=== PATIENT | female | born 1945 | race Caucasian/White ===

== ENCOUNTER 2020-03-24 13:59 | Outpatient (REF) | payer MEDICARE, SELFPAY ==
[2020-03-25 12:26] LABS: Anti DNA DS Antibody <1 IU/mL; SM/Ribonucleoprotein Ab <1.0 NEG AI (<1.0 NEG); Smith Protein <1.0 NEG AI (<1.0 NEG)
[2020-03-25 23:08] LABS: Anti Nuclear Antibody Screen POSITIVE (NEGATIVE)
== END 2020-03-24 14:00 | disposition home or self-care (01) ==
LOC: HO.LAB 13:59
PROVIDERS: PCP Internal Medicine; Visit Provider Hospitalist
DX: R76.8 Other specified abnormal immunological findings in serum (principal)
CPT/HCPCS: 36415; 86038; 86039; 86225; 86235

== ENCOUNTER → 2020-04-02 09:51 | Outpatient (BNVA) | payer MEDICARE, SELFPAY | PROVIDERS: PCP Internal Medicine; Visit Provider Hospitalist | DX: R91.8 Other nonspecific abnormal finding of lung field (principal); J45.909 Unspecified asthma, uncomplicated; M35.00 Sjogren syndrome, unspecified; J31.0 Chronic rhinitis | CPT/HCPCS: 99212 ==

== ENCOUNTER → 2020-06-28 13:00 | Outpatient (BNVA) | payer MEDICARE, SELFPAY | PROVIDERS: PCP Internal Medicine; Visit Provider Hospitalist | DX: J45.40 Moderate persistent asthma, uncomplicated (principal); R91.8 Other nonspecific abnormal finding of lung field; M35.00 Sjogren syndrome, unspecified; J31.0 Chronic rhinitis | CPT/HCPCS: 99212 ==

== ENCOUNTER → 2020-12-30 11:01 | Outpatient (BNVA) | payer MEDICARE, SELFPAY | PROVIDERS: PCP Internal Medicine; Visit Provider Hospitalist | DX: R91.8 Other nonspecific abnormal finding of lung field (principal); J45.40 Moderate persistent asthma, uncomplicated; J31.0 Chronic rhinitis; M35.00 Sjogren syndrome, unspecified | CPT/HCPCS: 99212 ==

== ENCOUNTER 2021-06-17 10:45 | Outpatient (REF) | payer MEDICARE, SELFPAY ==
--- NOTE | 2021-06-17 13:15 | PFT_ITS ---
Forced vital capacity 81%, FEV1 90%. FEV1/FVC ratio is 84. FEF 25-75, 117% and MVV 71%. Post bronchodilator therapy, there is no significant change. Total lung capacity 85% and residual volume 76%. Diffusion capacity 66%. CONCLUSION: Normal pulmonary function tests. No evidence of obstructive or restrictive pulmonary disorder. Slight decrease in diffusion capacity is noted, but volume corrected DL/VA is 84%, which is normal. MD NATASHA Guthrie/MODL / [id number]
== END 2021-06-17 10:46 | disposition home or self-care (01) ==
LOC: HO.RESP 10:45
PROVIDERS: PCP Internal Medicine; Visit Provider Hospitalist
DX: J45.909 Unspecified asthma, uncomplicated (principal)
CPT/HCPCS: 94060; 94727; 94729

== ENCOUNTER → 2021-06-29 10:45 | Outpatient (BNVA) | payer MEDICARE, SELFPAY | PROVIDERS: PCP Internal Medicine; Visit Provider Hospitalist | DX: J45.40 Moderate persistent asthma, uncomplicated (principal); R91.8 Other nonspecific abnormal finding of lung field; M35.00 Sjogren syndrome, unspecified; J31.0 Chronic rhinitis; I48.91 Unspecified atrial fibrillation; Z79.01 Long term (current) use of anticoagulants | CPT/HCPCS: 99212 ==

== ENCOUNTER → 2022-01-02 10:52 | Outpatient (BNVA) | payer MEDICARE, SELFPAY | PROVIDERS: PCP Internal Medicine; Visit Provider Hospitalist | DX: R91.1 Solitary pulmonary nodule (principal); J45.40 Moderate persistent asthma, uncomplicated; R91.8 Other nonspecific abnormal finding of lung field; M35.00 Sjogren syndrome, unspecified; J31.0 Chronic rhinitis | CPT/HCPCS: 99212 ==

== ENCOUNTER 2022-01-10 10:15 | Outpatient (REF) | payer MEDICARE, SELFPAY ==
--- NOTE | ~2022-01-10 | PE_ITS ---
EXAMINATION: Fluorine-18 FDG PET/CT Scan CLINICAL INDICATION: Initial treatment management. Solitary pulmonary nodule. Prior left upper lobe wedge resection. PROCEDURE: 65 minutes following the intravenous administration of 15.7 mCi of fluorine 18 FDG, images from the base of the skull to the mid thighs were obtained using a combined PET/CT scanner with CT scan based attenuation correction. No oral contrast was administered. No intravenous contrast was administered. Transverse, coronal, sagittal, and volume reconstruction projections were obtained. The patient's blood glucose as determined by a finger stick, was 98 mg/dl immediately prior to injection. Total CT exam dose-length product 769.05 mGy-cm * These CT images were obtained using dose optimization techniques as appropriate, variously including the following: Automated exposure control * Adjustment of mA and/or kV according to patient size (this includes techniques or standardized protocols for targeted exams where dose is matched to indication/reason for exam; i.e. extremities or head) * Use of iterative reconstruction technique COMPARISON: The previous PET CT scan dated 05/16/2018 performed at [facility] is available for comparison. The report of a chest CT performed at [facility] dated 12/06/2021 is available, but the images from that study are not available for review. FINDINGS: (Slice numbers described in this report are numbered superiorly to inferiorly with slice #1 in the head) NECK AND VISUALIZED HEAD: No foci of abnormal FDG activity are noted. The distribution of FDG activity is physiological. There is no cervical lymphadenopathy. THORAX: There are a cluster of subcentimeter adjacent nodules in the left lung apex that show weak FDG activity, the most intense showing SUVmax 2.3, slice 58/267. These nodules were not present on the 05/16/2018 PET/CT scan. There is evidence of a prior left upper lobe wedge resection with no associated abnormal FDG activity in the suture lines or associated with several metallic surgical clips. No additional suspicious pulmonary nodules are visualized on these nondiagnostic CT images. There are no additional foci of abnormal FDG activity in the chest. There is no pleural or pericardial fluid, or pneumothorax. There is no mediastinal, supraclavicular, or axillary lymphadenopathy. Multiple metallic surgical clips are present in the right axilla with no associated abnormal FDG activity. ABDOMEN AND PELVIS: There is FDG activity of varying intensities present throughout the gastrointestinal tract without a suspicious focal component or associated CT abnormalities, likely physiological. There is diverticulosis without evidence of diverticulitis. The hollow viscera are otherwise unremarkable. The liver is unremarkable. A small amount of dependent sludge or calculi are present in the gallbladder, but the latter is otherwise unremarkable. A subcentimeter calcification is present in the mid spleen, likely a granuloma with no associated abnormal FDG activity. The spleen is otherwise unremarkable. Hypodense cyst present in the right kidney are markedly FDG photopenic and not significantly changed in appearance from the prior 05/16/2018 PET/CT scan. The left kidney is unremarkable. The adrenal glands and pancreas are unremarkable. There is no retroperitoneal, mesenteric, pelvic or inguinal lymphadenopathy. The uterus is not visualized and presumed resected. The pelvic organs are otherwise unremarkable. MUSCULOSKELETAL: There are no foci of abnormal FDG activity in the osseous structures. There is a thoracolumbar scoliosis with lumbar convexity to the right. There are degenerative changes in the spine but no suspicious sclerotic or lytic lesions are visualized. VASCULAR: Vascular calcifications including coronary are noted. PET/PET CT fusion skull to thigh IMPRESSION: 1. A cluster of subcentimeter pulmonary nodules in the left lung apex show mildly associated FDG activity and this is suspicious for malignancy in nodules of this small size. Alternatively, these could be inflammatory in etiology. Tissue sampling is recommended if clinically indicated. 2. No additional abnormalities strongly suspicious for metastatic or other malignant lesions are noted. 3. Cholelithiasis. 4. Vascular calcifications including coronary.
== END 2022-01-10 10:16 | disposition home or self-care (01) ==
LOC: HO.PET 10:15
PROVIDERS: PCP Internal Medicine; Visit Provider Hospitalist
DX: Z13.89 Encounter for screening for other disorder (principal)

== ENCOUNTER → 2022-03-07 10:08 | Outpatient (BNVA) | payer MEDICARE, SELFPAY | PROVIDERS: PCP Internal Medicine; Visit Provider Hospitalist | DX: J45.40 Moderate persistent asthma, uncomplicated (principal); R91.8 Other nonspecific abnormal finding of lung field; J31.0 Chronic rhinitis; M35.00 Sjogren syndrome, unspecified; Z79.899 Other long term (current) drug therapy | CPT/HCPCS: 99212 ==

== ENCOUNTER 2022-03-23 07:29 | Day surgery (SDC) | payer MEDICARE, SELFPAY ==
[2022-03-16 14:21] VITALS: BMI 31.7
--- NOTE | 2022-03-22 13:17 | P.CONAN_ITS ---
Documented by User: Nuvia Crandall NP 03/22/22 13:21 HPI - Anesthesia Eval Consult details Narrative: 77yo F for Bronchoscopy Fiberoptic Eliquis for afib PMFSH Active Problems Active Problems: All Active Problems (Updated 03/16/22 @ 14:19 by Mercedes Mota RN) Pulmonary nodules (Acute) Asthma (Acute) History of breast cancer (Acute ~1997) Chronic rhinitis (Acute) Sjogren's disease (Acute) Past Medical History Medical History (Updated 03/16/22 @ 14:19 by Mercedes Mota RN) Asthma Atrial fibrillation Chronic rhinitis GERD (gastroesophageal reflux disease) History of breast cancer (~1997) Pulmonary nodules Sjogren's disease Surgical History Surgical History (Updated 03/16/22 @ 14:03 by Mercedes Mota RN) History of bronchoscopy History of lung surgery Social History Social History (Updated 12/30/20 @ 11:16 by FLORENTINO Leo) Are you a primary hearing care practitioner to a significant other at home: No Patient Tobacco Use Status: Never used Tobacco Use of substances other than those prescribed or required for medical reasons: No Have you been hit, kicked, punched, or otherwise hurt by someone within the past year? If so, by whom?: No Are you DNR?: Yes Advance Directives: No Advance Directives Information Provided: Yes (will bring copies DOS) Advance Directives on File: No Recently lost weight without trying: No Eating poorly because of decreased appetite: No Nutrition Risks: Surgical patient >75years Poor oral hygiene: No Meds Allergies Allergy/AdvReac Type Severity Reaction Status Date / Time lisinopril AdvReac Intermediate Cough Verified 03/16/22 13:33 Home Medications Medication Instructions Recorded Confirmed Last Taken Type flu vacc [id number](65yr up)-PF 240 ml IM 04/02/20 04/02/20 Unknown History mcg/0.7 mL intramuscular syringe hydrochlorothiazide 12.5 mg capsule 12.5 mg PO DAILY 04/02/20 03/16/22 Unknown History hydroxychloroquine 200 mg tablet 200 mg PO BID 04/02/20 03/16/22 Unknown History omeprazole 20 mg capsule,delayed 20 mg PO DAILY 04/02/20 03/16/22 Unknown His tory release trazodone 100 mg tablet 100 mg PO BEDTIME 06/28/20 03/16/22 Unknown History apixaban 5 mg tablet (Eliquis) 5 mg PO BID 06/29/21 03/16/22 Unknown History duloxetine 40 mg capsule,delayed 40 mg PO BEDTIME 06/29/21 03/16/22 Unknown History release metoprolol succinate 25 mg 25 mg PO BEDTIME 06/29/21 03/16/22 Unknown History tablet,extended release 24 hr chlorhexidine gluconate 0.12 % 15 ml PO BID 01/02/22 03/16/22 Unknown History mouthwash Exam Exam Date and Time: March 22, 2022 1317 Height,Weight and Vital Signs: Height 5 ft 4 in Weight 83.915 kg Narrative Narrative: EKG 02/2021 SA marked axis deviation c/w LAFB ECHO 03/2021 1. There is nml LV function 2. Overall LV systolic function nml with EF 60-65% 3. Mild pulm htn PFT 05/2021 CONCLUSION:? Normal pulmonary function tests. ? No evidence of obstructive or restrictive pulmonary disorder. ? Slight decrease in diffusion capacity is noted, but volume corrected DL/VA is 84%, which is normal. Assessment and Plan Assessment Anesthesia Assessment: Chart Reviewed Documented by User: Wander Alonso MD 03/23/22 08:27 [facility] Past Medical History Medical History (Updated 03/16/22 @ 14:19 by Mercedes Mota, ADAIR) Asthma Atrial fibrillation Chronic rhinitis GERD (gastroesophageal reflux disease) History of breast cancer (~1997) Pulmonary nodules Sjogren's disease Family History Family history of problems with anesthesia: No Surgical History Surgical History (Updated 03/16/22 @ 14:03 by Mercedes Mota RN) History of bronchoscopy History of lung surgery History of Problems with Anesthesia: No Social History Social History (Updated 12/30/20 @ 11:16 by FLORENTINO Leo) Are you a primary hearing care practitioner to a significant other at home: No Patient Tobacco Use Status: Never used Tobacco Use of substances other than those prescribed or required for medical reasons: No Have you been hit, kicked, punched, or otherwise hurt by someone within the past year? If so, by whom?: No Are you DNR?: Yes Advance Directives: No Advance Directives Information Provided: Yes (will bring copies DOS) Advance Directives on File: No Recently lost weight without trying: No Eating poorly because of decreased appetite: No Nutrition Risks: Surgical patient >75years Poor oral hygiene: No Meds Allergies Allergy/AdvReac Type Severity Reaction Status Date / Time lisinopril AdvReac Intermediate Cough Verified 03/16/22 13:33 Home Medications Medication Instructions Recorded Confirmed Last Taken Type flu vacc [id number](65yr up)-PF 240 ml IM 04/02/20 04/02/20 Unknown History mcg/0.7 mL intramuscular syringe hydrochlorothiazide 12.5 mg capsule 12.5 mg PO DAILY 04/02/20 03/16/22 Unknown History hydroxychloroquine 200 mg tablet 200 mg PO BID 04/02/20 03/16/22 Unknown History omeprazole 20 mg capsule,delayed 20 mg PO DAILY 04/02/20 03/16/22 Unknown History release trazodone 100 mg tablet 100 mg PO BEDTIME 06/28/20 03/16/22 Unknown History apixaban 5 mg tablet (Eliquis) 5 mg PO BID 06/29/21 03/16/22 Unknown History duloxetine 40 mg capsule,delayed 40 mg PO BEDTIME 06/29/21 03/16/22 Unknown History release metoprolol succinate 25 mg 25 mg PO BEDTIME 06/29/21 03/16/22 Unknown History tablet,extended release 24 hr chlorhexidine gluconate 0.12 % 15 ml PO BID 01/02/22 03/16/22 Unknown History mouthwash Exam Airway Mallampati Class: II TM Dist: >3cm Neck ROM: Limited Loose/Missing/Broken Teeth: No Heart: rrr Lungs: cta Assessment and Plan Final Anesthetic Review Family History of Problems with Anesthesia: No History of Problems with Anesthesia: No NPO: Yes ASA Class: III Final Preanesthetic Review: No Changes in Pt Med Stat, Meds/Allgs Chart Reviewed, Consent Obtained/Reviewed and Anes Risks/Benef Reviewed Patient Risk: Intermediate Procedure Risk: Intermediate Anesthetic Plan Anesthetic Plan: GA and Agree w/ Assess. and Plan Disposition: Standard PACU
[2022-03-23] VITALS (8 sets, daily range): BP systolic 100–127; BP diastolic 40–59; PULSE 50–70; RESP 16–18; TEMP 36.3–37.1; O2SAT 91–99
--- NOTE | ~2022-03-23 | XR_ITS ---
EXAMINATION: XR CHEST CLINICAL INFORMATION: Left lung biopsy COMPARISON: CT chest 12/06/2021 TECHNIQUE: Frontal view of the chest was obtained. FINDINGS: There is COPD much better demonstrated on prior CT scan. Nodular opacities are again noted at the left apex, similar to the 12/06/2021 CT scan although exact comparisons between modalities is difficult. When I compare the prn physical therapist radiograph from that study with the chest radiograph today, the opacities appear increased. Heart size within normal limits. No CHF. No pleural effusions. Surgical clips noted right axilla and chest wall. XR/XR chest 1V IMPRESSION: 1. No pneumothorax. 2. Left apical nodular appearing increased when compared to the prior CT scan. Repeat CT scan, per oncology protocols, may be more useful for comparison.
--- NOTE | 2022-03-23 08:08 | MHC.SHP ---
Pre-Procedural Eval Section A Date of Service: 03/23/22 The patient is an INPATIENT: No Changes since office visit: No Cold of Flu in the past 2 weeks, No New Medical Problems, No Changes in Medication and No Patient answered all questions Section B Chief Complaint: Other nonspecific abnormal finding of lung field Allergies: Allergies Allergy/AdvReac Type Severity Reaction Status Date / Time lisinopril AdvReac Intermediate Cough Verified 03/16/22 13:33 Plan I have reviewed the history and physical and performed a pertinent physical examination on my patient. No changes have occurred unless specified. Time Spent With Patient Time: Total time managing care of this patient today ____ minutes.
[2022-03-23] MEDS: Lactated Ringers 1,000 ML 100 ML IVCONT (08:14)
--- NOTE | 2022-03-23 08:21 | PC.NURSE ---
dr. mckeon aware that patient stated she stopped eliquis on sunday and monitors at home and was in a-fib on sunday and then back to nsr on sunday. did not come to er or call exhibit designer.
--- NOTE | 2022-03-23 08:29 | HO.ANESPROP2 ---
REPLACED BY [facility] Active Problems Active Problems: All Active Problems (Updated 03/16/22 @ 14:19 by Mercedes Mota RN) Pulmonary nodules (Acute) Asthma (Acute) History of breast cancer (Acute ~1997) Chronic rhinitis (Acute) Sjogren's disease (Acute) Past Medical History Medical History (Updated 03/16/22 @ 14:19 by Mercedes Mota RN) Asthma Atrial fibrillation Chronic rhinitis GERD (gastroesophageal reflux disease) History of breast cancer (~1997) Pulmonary nodules Sjogren's disease Family History Family history of problems with anesthesia: No Surgical History Surgical History (Updated 03/16/22 @ 14:03 by Mercedes Mota RN) History of bronchoscopy History of lung surgery History of Problems with Anesthesia: No Social History Social History (Updated 12/30/20 @ 11:16 by FLORENTINO Leo) Are you a primary home care physical therapist to a significant other at home: No Patient Tobacco Use Status: Never used Tobacco Use of substances other than those prescribed or required for medical reasons: No Have you been hit, kicked, punched, or otherwise hurt by someone within the past year? If so, by whom?: No Are you DNR?: Yes Advance Directives: No Advance Directives Information Provided: Yes (will bring copies DOS) Advance Directives on File: No Recently lost weight without trying: No Eating poorly because of decreased appetite: No Nutrition Risks: Surgical patient >75years Poor oral hygiene: No Meds Allergies Allergy/AdvReac Type Severity Reaction Status Date / Time lisinopril AdvReac Intermediate Cough Verified 03/16/22 13:33 Active Medications: Current Medications Albuterol Sulfate (Albuterol Sulfate (0.083%) 2.5 Mg/3 Ml Vial.Neb) 2.5 mg INHALE ONCE PRN PRN Reason: Shortness of Breath/Wheezing Lactated Ringer's (Lr) 1,000 mls @ 100 mls/hr IVCONT .Q10H REKHA Last Admin: 03/23/22 08:14 Dose: 100 mls/hr Home Medications Medication Instructions Recorded Confirmed Last Taken Type flu vacc [id number](65yr up)-PF 240 ml IM 04/02/20 04/02/20 Unknown History mcg/0.7 mL intramuscular syringe hydrochlorothiazide 12.5 mg capsule 12.5 mg PO DAILY 04/02/20 03/16/22 Unknown History hydroxychloroquine 200 mg tablet 200 mg PO BID 04/02/20 03/16/22 Unknown History omeprazole 20 mg capsule,delayed 20 mg PO DAILY 04/02/20 03/16/22 Unknown History release trazodone 100 mg tablet 100 mg PO BEDTIME 06/28/20 03/16/22 Unknown History apixaban 5 mg tablet (Eliquis) 5 mg PO BID 06/29/21 03/16/22 Unknown History duloxetine 40 mg capsule,delayed 40 mg PO BEDTIME 06/29/21 03/16/22 Unknown History release metoprolol succinate 25 mg 25 mg PO BEDTIME 06/29/21 03/16/22 Unknown History tablet,extended release 24 hr chlorhexidine gluconate 0.12 % 15 ml PO BID 01/02/22 03/16/22 Unknown History mouthwash Exam Exam Date and Time: March 23, 2022 0829 Height,Weight and Vital Signs: Height 5 ft 4 in Weight 83.915 kg Last Vital Signs Temp 97.3 F 03/23/22 08:18 Pulse 56 03/23/22 08:18 Resp 18 03/23/22 08:18 BP 127/59 L 03/23/22 08:18 Pulse Ox 96 03/23/22 08:18 O2 Del Method 03/23/22 08:18 Airway Mallampati Class: II TM Dist: >3cm Neck ROM: Full Heart: RR, no@ Lungs: clear Assessment and Plan Assessment Anesthesia Assessment: Anesthesia Plan Discussed and Chart Reviewed Final Anesthetic Review Family History of Problems with Anesthesia: No History of Problems with Anesthesia: No NPO: Yes ASA Class: III Final Preanesthetic Review: No Changes in Pt Med Stat, Meds/Allgs Chart Reviewed, Consent Obtained/Reviewed and Anes Risks/Benef Reviewed Patient Risk: Intermediate Procedure Risk: Intermediate Anesthetic Plan Anesthetic Plan: GA Disposition: Standard PACU
--- NOTE | 2022-03-23 12:32 | P.BOP_ITS ---
Brief Operative Note Date of Service: 03/23/22 Pre-op diagnosis: pulmonary nodules Post-op diagnosis: other (bronchitis) Procedure: Bronchoscopy with transbronchial biopsies, brushings and washings Implants: Surgeon: Torrey Ortiz MD Anesthesia: GETA Was an Lamp Stack Developer used for this Procedure?: No Estimated blood loss (mL): 0 Pathology: other (CORDELIA transbronchial biopsies) Condition: stable Disposition: same day
--- NOTE | 2022-05-31 09:25 | OP_ITS ---
DATE OF SERVICE: 03/23/2022 SURGEON: Torrey Ortiz MD PREOPERATIVE DIAGNOSIS: Pulmonary nodule. POSTOPERATIVE DIAGNOSIS: PROCEDURE PERFORMED: Bronchoscopy with transbronchial biopsies, washings and brushings. ESTIMATED BLOOD LOSS: COMPLICATIONS: ANESTHESIA: General endotracheal anesthesia. ASSISTANTS: SPECIMENS: POSTOPERATIVE DIAGNOSES: Pulmonary nodule and bronchitis. DESCRIPTION OF PROCEDURE: After the patient was adequately sedated and intubated, a flexible digital bronchoscope was inserted over the ET tube to the level of the trachea. Tracheal mucosa appeared normal. After instilling lidocaine, the bronchoscope was then passed to the entire tracheobronchial tree, that was examined up to the subsegmental level. The patient did have evidence of inflammation of the mucosa suggesting of bronchitis. There was some minimal amount of mucus. No endobronchial lesions or masses. The bronchoscope was navigated to the left upper lobe where transbronchial biopsies were done. Brushings were also done and washings were also collected. No significant bleeding. The patient tolerated the procedure well. Bronchoscopic time was approximately 20 minutes. No apparent complications. SUPERVISOR COOK ROOM: None. MD YAW Joseph/ZACHARYL / [id number]
== END 2022-03-23 12:23 | disposition home or self-care (01) ==
PROVIDERS: PCP Internal Medicine; Visit Provider Hospitalist
PROC: 0BJ08ZZ Inspection of Tracheobronchial Tree, Via Natural or Artificial Opening Endoscopic (ICD-10-PCS; CPT 31622; principal; 2022-03-23 09:00)
DX: R91.8 Other nonspecific abnormal finding of lung field (principal); J44.9 Chronic obstructive pulmonary disease, unspecified; J45.40 Moderate persistent asthma, uncomplicated; J31.0 Chronic rhinitis; I48.91 Unspecified atrial fibrillation; K21.9 Gastro-esophageal reflux disease without esophagitis; Z85.3 Personal history of malignant neoplasm of breast; M35.00 Sjogren syndrome, unspecified; Z79.01 Long term (current) use of anticoagulants; Z79.899 Other long term (current) drug therapy; Z88.8 Allergy status to other drugs, medicaments and biological substances
CPT/HCPCS: 31628; 31623; 71045; 87070; 87073; 87116; 87205; 87206; 88112; 88305; J0171; J1100; J2405; J3010

== ENCOUNTER → 2022-03-30 10:48 | Outpatient (BNVA) | payer MEDICARE, SELFPAY | PROVIDERS: PCP Internal Medicine; Visit Provider Hospitalist | DX: J45.40 Moderate persistent asthma, uncomplicated (principal); R91.8 Other nonspecific abnormal finding of lung field; J31.0 Chronic rhinitis; M35.00 Sjogren syndrome, unspecified | CPT/HCPCS: 99212 ==

== ENCOUNTER → 2022-06-06 10:51 | Outpatient (BNVA) | payer MEDICARE, SELFPAY | PROVIDERS: PCP Internal Medicine; Visit Provider Hospitalist | DX: J45.40 Moderate persistent asthma, uncomplicated (principal); R91.8 Other nonspecific abnormal finding of lung field; M35.00 Sjogren syndrome, unspecified; J31.0 Chronic rhinitis; D86.9 Sarcoidosis, unspecified | CPT/HCPCS: 99212 ==

== ENCOUNTER 2022-10-10 10:09 | Outpatient (AMB) | payer MEDICARE, SELFPAY ==
[2022-10-10 10:17] VITALS: PULSE 66; O2SAT 96; BMI 31.9
--- NOTE | 2022-10-10 10:17 | MHC.OFFVIS ---
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 Apparently she was diagnosed with the breast cancer back in 1997. She was also found to have a nodule or is density in her neck and then followed up with a CT scan of the chest noting multiple pulmonary nodules. Indeed there were concerned because of the size of the nodules and she did undergo a PET scan especially with a history of breast cancer. In the was abnormal with a positive activity in a nodular density in her lungs and also with the lymph node. Her lymph node which is reactive lymphocytes without any evidence of any lymphoma. Apparently the biopsy results I do not have however per report he likely had some granulomas suggesting a mycobacterial process. She has had multiple bronchoscopies negative for any mycobacterial organisms. She has had does at [facility]. Recently she did follow-up with thoracic surgery the reviewed her CT scan from [facility] done April and plan to do another 1 in July. 09/29/2019 the patient is here for pulmonary follow-up visit. Overall she is doing well. She denies any respiratory complaints at this time. No shortness of breath or coughing. She did have a recent CT scan of the chest that was personally reviewed by me and also the patient was present. It appears that the pulmonary nodules that were much significant back in April of 2019 have decrease in size. It is likely a inflammatory process. We had to suspicion of granulomas on her previous biopsy it does bring the the question of sarcoidosis versus hypersensitivity pneumonitis. Additional blood work will be helpful at this time. She does follow up closely with thoracic surgery and she is scheduled for repeat CAT scan in 6 months. the patient is here for pulmonary follow-up visit. Overall the patient has been doing well from a respiratory status. Her only major complaint is significant runny nose and postnasal drip. She does have a history of Sjogren's disease and therefore has to be very careful with medications and inhalers. She did undergo a CT scan of the chest at [facility] demonstrating waxing waning pulmonary nodules with 1 nodule that appears to be enlarging. Therefore she is scheduled to have a repeat CT scan of the chest at [facility] in April 2020. The patient in follow-up thoracic surgery. She is already status post wedge resection demonstrating some granulomas. Her blood work was negative for any active sarcoidosis. Her blood work did demonstrate an elevated JUAN PABLO. With her history of connective tissue disease we are aware that lung involvement from this connective tissue diseases are possible. In the meantime the patient will try a nasal spray to see if we can get her to improve her postnasal drip and she can uses only as needed to minimize too much irritation to her nasal mucosa. 06/28/2020 the patient is here for pulmonary follow-up visit. Overall she is doing well. She does complaint of some dyspnea on exertion mild in severity. She did recently have a CT scan of the chest that was personally by me. She had done at [facility]. It did demonstrate some slight interval worsening of the nodular density. Based on her previous biopsies this is consistent with inflammatory process. The patient has granulomas therefore I stated above need to consider sarcoidosis versus smoldering infectious process. She has had multiple bronchoscopies negative for any AFB. In addition to that the patient does have a history of Sjogren's and currently stable put on her current therapy. I will optimize respiratory therapy switching her from QVAR to Symbicort. In the meantime will plan to repeat the CT scan in 6 months. If she has interval worsening of the nodular density that will plan for bronchoscopy at the time. I will repeat some blood work including Jose M level and other inflammatory markers. 12/30/2020 the patient is here for pulmonary follow-up visit. We had switch her inhaler from the QVAR to a combination inhaler, Breo. She really has not with seen any significant improvement in her respiratory capacity while on this inhaler. The medication is also very expensive for her and she is running into a donut hole. She still continues to have dyspnea on exertion. When she stops the medication she needs to closely monitor her symptoms and see if there is any worsening. If she does have worsening that she needs to go back on respiratory inhalers. The patient also had a CT scan of the chest that was personally by me. I also reviewed her CT scan from 6 months ago which had at [facility]. It appears that some of the nodular densities are improved and decreased overall. I will request that radiology also is able to an addendum to provide a comparison between the 2 studies as well. Based on the persistent nodular densities I will request a repeat CT scan in a year unless the addendum suggest that she should have 1 sooner. 06/29/2021 the patient is here for pulmonary follow-up visit. Overall respiratory status seems to be better. She does not have any inhalers at this time. She was diagnosed with atrial fibrillation and subsequently started on Eliquis. She is also taking metoprolol for rate controlling agent. The patient did undergo pulmonary function studies which we personally reviewed demonstrating mild restrictive ventilatory defect with the mild to moderate diffusion impairment. The patient did have a lung resection in the past. The diffusion impairment does correct to normal when corrected for the alveolar volume. At this point the patient does not need any additional inhalers. Will follow in pulmonary nodules. She is scheduled to undergo repeat CT scan sometime in the fall 2021. Will have her follow up at that time to review the results. Otherwise patient is without any other complaints. 01/02/2022 the patient is here for a pulmonary follow-up visit. The patient overall has been doing well. Denies any respiratory complaints. She denies any night sweats. She has good appetite and has not had any weight loss. She did have a repeat CT scan of the chest done in November 2021 which was personally by me. I did also review the images with the patient. It appears that she does have multiple nodular densities that have involved in the left upper lobe area. In addition to that she has a pulmonary nodule in the left lower lobe that is measuring now 8 mm in size. Therefore has increased in size. She has a history of breast cancer. She also has a history of a VATS resection in the past suggesting granulomas. In view of the multiple nodular densities in history of breast cancer the best option will be to get a PET scan. Depending on the findings we can consider bronchoscopy versus biopsy. She is blood thinners with Eliquis so therefore additional imaging studies will be important In order to increase the yield of any invasive or semi-invasive diagnostic interventions. 03/07/2022 the patient is here for pulmonary follow-up visit. The patient is doing well. Denies any significant shortness of breath or cough. She is concerned about the CT scan findings that she had back in the fall. We did follow-up with a PET scan. It appears to demonstrate that the nodular densities have an FDG activity about 2.3 FDG. H was reassuring knowing that the threshold this typically 2.5. Although malignancies in differential this is likely to be inflammatory process. Her last biopsy demonstrated that she had granulomas. Therefore small likely that this is likely to be related to sarcoid versus a smoldering infection. Will plan to undergo bronchoscopy at this time. She does take Eliquis and therefore she would have to stop the Eliquis at least for 3 days prior to the biopsy. 03/30/2022 the patient is here for a pulmonary follow-up visit. The patient continues to have symptoms of cough. Actually she is status post bronchoscopy and her cough is actually worse now. She feels rumbling and chest congestion. Moderate severity. She initially noted some scant blood in her sputum which is expected due to the fact that she takes Eliquis and also she had biopsies. We did review her results. Her biopsies demonstrated chronic inflammation of the transbronchial biopsies. Her washings also demonstrated inflammatory changes. The patient did have evidence of bronchitis as well. Will go ahead and start her on a small dose of prednisone and antibiotics at this time. All her cultures are negative. The main culture will waiting for his the AFB cultures for mycobacterial disease which are still pending. 06/06/2022 the patient is here for a pulmonary follow-up visit. Overall she continues to be about the same. She complains about intermittent cough. Also dyspnea on exertion [id number] severity when going up an incline. She denies any rashes. Denies any visual changes. We did again look at the microbiology. Or AFB and fungal cultures are negative. Therefore ruling out an infectious process causing the granulomas. In view of the negative microbiology this is consistent with sarcoidosis. The patient has some symptoms in addition to that has interval worsening of the parenchymal lung disease. Therefore the patient agrees to go ahead and treat with prednisone for the next few months and then repeat the CT scan of the chest in 3 months to see if there is improvement. The patient was started 30 mg. If however this is difficult for her to tolerate she can always decrease it down to 20. I am hopeful that she can wean down to 10 mg and then continue on that smaller does until her CT scan. The patient understands that if the CAT scan does demonstrate any improvement at that point I will recommend she a follow-up visit with thoracic surgery. 10/10/2022 the patient is here for a pulmonary follow-up visit. She is down to 10 mg of prednisone. Overall her breathing is better. She also had a CT scan of the chest that we personally viewed together. Appears that the nodular density in the left upper lobe has completely subsided. 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 The patient also has a history of Sjogren's. While she was in the prednisone she did have a flare up with significant salivary gland inflammation. She was seen by her aerial sprayer. She was recommended to continue on the prednisone. Now that she is down to 10 mg will going to wean her off slowly. Hopefully within the next 6 weeks she will be off the prednisone altogether. Although, based on the degree of inflammation based on her Sjogren's she may need some steroid sparing agent to help her modulate her symptoms and the inflammatory process. Therefore we did talk about immunomodulator therapy such as with methotrexate or CellCept. Clinically the patient is doing better she still on 10 mg of prednisone. Therefore will going to continue to wean off slowly the prednisone and when she is off she is going to have an x-ray. Subsequently after that if the x-rays okay she will return sometime in the end of the year after a CT scan of the chest to see if there is any progression of disease. At any point that she has any worsening symptoms she is to call. She is in December she is going to have an appoint with aerial sprayer and they can discuss the need for any additional therapies when she is off prednisone. [facility] Medical History (Updated 10/10/22 @ 19:43 by Torrey Ortiz MD) Asthma Atrial fibrillation Chronic rhinitis GERD (gastroesophageal reflux disease) History of breast cancer (~1997) Pulmonary nodules Sarcoidosis Sjogren's disease Surgical History (Updated 03/16/22 @ 14:03 by Mercedes Mota RN) History of bronchoscopy History of lung surgery Social History (Updated 12/30/20 @ 11:16 by FLORENTINO Leo) Are you a primary lpn care manager to a significant other at home: No Patient Tobacco Use Status: Never used Tobacco Review of Systems Const Denies night sweats ENT Denies change in voice, Denies lip swelling, Denies mouth pain, Reports nasal congestion, Reports nasal discharge and Denies tongue swelling Card Denies chest pain, Denies palpitations and Reports dyspnea on exertion Resp Reports chest congestion, Reports cough and Reports dyspnea on exertion GI Denies abdominal pain Musc Denies no additional complaints Neuro Denies Neuro-related abnormal movements Psych Denies no additional complaints Endo Denies palpitations Ravinder/Lymph Denies easy bleeding and Denies lymphadenopathy Aller/Immun Denies lip swelling and Denies tongue swelling Physical Exam Vital Signs: Last Vital Signs Pulse 66 10/10/22 10:17 Pulse Ox 96 10/10/22 10:17 Oxygen Delivery Method Room Air 10/10/22 10:17 BMI result Body Mass Index 31.9 Const General: alert HEENT Head: Yes atraumatic Eyes Pupils: Equal, round and reactive pupils present Neck Neck: Yes supple Chest Chest palpation & inspection: normal inspection of the chest Resp Auscultation: diminished lung sounds Cardio Rate: regular rate Rhythm: regular rhythm Heart sounds: S1 normal heart sound present and S2 normal heart sound present GI Palpation (GI): Soft to palpation and nontender Auscultation: normal bowel sounds Skin General skin exam: rashes and/or lesions noted Neuro Cranial nerves: Yes Equal, round and reactive pupils present Assessment & Plan Assessment & Plan (1) Asthma: Code(s): J45.909 - Unspecified asthma, uncomplicated Qualifiers: Asthma complication type: uncomplicated Asthma persistence: persistent Asthma severity: moderate Qualified Code(s): J45.40 - Moderate persistent asthma, uncomplicated (2) Pulmonary nodules: Comment: better on the prednisone Code(s): R91.8 - Other nonspecific abnormal finding of lung field (3) Sjogren's disease: Code(s): M35.00 - Sjogren syndrome, unspecified Qualifiers: Sjogren's organ involvement: unspecified organ involvement Qualified Code(s): M35.00 - Sicca syndrome, unspecified (4) Chronic rhinitis: Code(s): J31.0 - Chronic rhinitis (5) Sarcoidosis: Code(s): D86.9 - Sarcoidosis, unspecified Plan taper Prednisone off in 6 weeks repeat CXR 8 weeks consider starting immunomodulator therapy of symptoms develop or worsening imaging continue plaquenil F/U with Rheumatology repeat CT chest in 3 months F/U 3 months Orders: Orders XR chest 2V Today D86.9 - Sarcoidosis, unspecified CT chest wo IV con 01/29/23 R91.8 - Other nonspecific abnormal finding of lung field Coding Level of Care Code Est Pt Level 4 (86357) Diagnoses Asthma J45.40 Asthma complication type: uncomplicated Asthma persistence: persistent Asthma severity: moderate Pulmonary nodules R91.8 Sjogren's disease M35.00 Sjogren's organ involvement: unspecified organ involvement Chronic rhinitis J31.0 Sarcoidosis D86.9 Time Spent (min) 19
== END 2022-10-10 10:54 | disposition home or self-care (01) ==
PROVIDERS: PCP Internal Medicine; Visit Provider Hospitalist
DX: J45.40 Moderate persistent asthma, uncomplicated (principal); R91.8 Other nonspecific abnormal finding of lung field; M35.00 Sjogren syndrome, unspecified; J31.0 Chronic rhinitis; D86.9 Sarcoidosis, unspecified
CPT/HCPCS: 99214

== ENCOUNTER → 2022-10-10 10:09 | Outpatient (BNVA) | payer MEDICARE, SELFPAY | PROVIDERS: PCP Internal Medicine; Visit Provider Hospitalist | DX: J45.40 Moderate persistent asthma, uncomplicated (principal); R91.8 Other nonspecific abnormal finding of lung field; M35.00 Sjogren syndrome, unspecified; J31.0 Chronic rhinitis; D86.9 Sarcoidosis, unspecified | CPT/HCPCS: 99212 ==

== ENCOUNTER 2022-12-12 13:05 | Outpatient (REF) | payer MEDICARE, SELFPAY ==
--- NOTE | ~2022-12-12 | XR_ITS ---
EXAMINATION: XR CHEST CLINICAL INFORMATION: 77-year-old female with sarcoidosis COMPARISON: 03/23/2022 TECHNIQUE: 2 views of the chest were obtained. FINDINGS: Lungs are clear without infiltrates nodules or pleural effusion. Cardiomediastinal silhouette is normal. Surgical oscar seen in the right axilla. Osseous structures unremarkable. XR/XR chest 2V IMPRESSION: No active cardiopulmonary disease
== END 2022-12-12 13:06 | disposition home or self-care (01) ==
LOC: HO.XRAY 13:05
PROVIDERS: PCP Internal Medicine; Visit Provider Hospitalist
DX: D86.9 Sarcoidosis, unspecified (principal)
CPT/HCPCS: 71046

== ENCOUNTER 2023-01-26 13:09 | Outpatient (REF) | payer MEDICARE, SELFPAY ==
--- NOTE | ~2023-01-26 | CT_ITS ---
EXAMINATION: CT CHEST WITHOUT CONTRAST CLINICAL INFORMATION: Prior abnormal imaging. COMPARISON: 09/04/2022 TECHNIQUE: Multidetector volumetric CT imaging of the chest was done. Axial MIP volume rendering provided. Sagittal and coronal reformatted images were obtained. This CT examination was performed using dose optimization techniques as appropriate, variously including the following: *Automated exposure control *Adjustment of mA and/or kV according to patient size (this includes techniques or standardized protocols for targeted exams where dose is matched to indication/reason for exam; i.e. extremities or head) *Use of iterative reconstruction technique DLP: 169 mGy-cm FINDINGS: LUNGS: Postsurgical changes in the left upper lobe following wedge resection. There are persistent tree-in-bud opacities in the superior segment of the left lower lobe. The following nodules are stable: 7 mm perifissural nodule in the right upper lobe on image 266 of series 5. 4 mm right lower lobe nodule on image 307 of series 5. 4 mm right lower lobe nodule on image 355 of series 5. The following nodules are new: 4 mm subpleural nodule left lower lobe on image 428 of series 5. 8 mm subpleural nodule left lower lobe on image 439 of series 5. 8 mm left lower lobe nodule on image 504 of series 5. MEDIASTINUM: No bulky axillary, hilar or mediastinal lymphadenopathy. Great vessels are unchanged in caliber. Heart size is normal. No pericardial effusion. CORONARY ARTERY CALCIFICATION: Moderate. PLEURA: There is no pleural effusion. No pleural mass or thickening. AXILLA: Multiple surgical clips in the right axilla. There is persistent infiltration of the subcutaneous tissues of the right chest wall. UPPER ABDOMEN: Small hiatal hernia. Cholelithiasis. OSSEOUS STRUCTURES: No destructive bone lesions. CT/CT chest wo IV con IMPRESSION: New subpleural left lower lobe nodules measuring up to 8 mm. Follow-up chest CT in 3-6 months is advised.
== END 2023-01-26 13:10 | disposition home or self-care (01) ==
LOC: HO.CT 13:09
PROVIDERS: PCP Internal Medicine; Visit Provider Hospitalist
DX: R91.8 Other nonspecific abnormal finding of lung field (principal)
CPT/HCPCS: 71250

== ENCOUNTER 2023-02-22 13:53 | Outpatient (AMB) | payer MEDICARE, SELFPAY ==
--- NOTE | 2023-02-22 14:00 | A.OFFVIS_ITS ---
Intake Vital Signs 02/22/23 14:01 Height 5 ft 4 in Weight 185 lb BMI 31.8 BP 118/60 Blood Pressure Location Lt brachial Position Sitting Pulse 60 Pulse Source Pulse Oximeter Pulse Oximetry (%) 96 Oxygen Delivery Method Room Air Intake Visit Reasons: Pulmonary Nodules Spiral Winder Required: No Allergies lisinopril Adverse Reaction (Intermediate, Verified 02/22/23 14:04) Cough HPI HPI Comments History of Present Illness Details The patient is a 77-year-old woman with a known history of breast cancer in addition to pulmonary nodules. Apparently she was diagnosed with the breast cancer back in 1997. She was also found to have a nodule or is density in her neck and then followed up with a CT scan of the chest noting multiple pulmonary nodules. Indeed there were concerned because of the size of the nodules and she did undergo a PET scan especially with a history of breast cancer. In the was abnormal with a positive activity in a nodular density in her lungs and also with the lymph node. Her lymph node which is reactive lymphocytes without any evidence of any lymphoma. Apparently the biopsy results I do not have however per report he likely had some granulomas suggesting a mycobacterial process. She has had multiple bronchoscopies negative for any mycobacterial organisms. She has had does at [facility]. Recently she did follow-up with thoracic surgery the reviewed her CT scan from [facility] done April and plan to do another 1 in July. 09/29/2019 the patient is here for pulmonary follow-up visit. Overall she is doing well. She denies any respiratory complaints at this time. No shortness of breath or coughing. She did have a recent CT scan of the chest that was personally reviewed by me and also the patient was present. It appears that the pulmonary nodules that were much significant back in April of 2019 have decrease in size. It is likely a inflammatory process. We had to suspicion of granulomas on her previous biopsy it does bring the the question of sarcoidosis versus hypersensitivity pneumonitis. Additional blood work will be helpful at this time. She does follow up closely with thoracic surgery and she is scheduled for repeat CAT scan in 6 months. the patient is here for pulmonary follow-up visit. Overall the patient has been doing well from a respiratory status. Her only major complaint is significant runny nose and postnasal drip. She does have a history of Sjogren's disease and therefore has to be very careful with medications and inhalers. She did undergo a CT scan of the chest at [facility] demonstrating waxing waning pulmonary nodules with 1 nodule that appears to be enlarging. Therefore she is scheduled to have a repeat CT scan of the chest at [facility] in April 2020. The patient in follow-up thoracic surgery. She is already status post wedge resection demonstrating some granulomas. Her blood work was negative for any active sarcoidosis. Her blood work did demonstrate an elevated JUAN PABLO. With her history of connective tissue disease we are aware that lung involvement from this connective tissue diseases are possible. In the meantime the patient will try a nasal spray to see if we can get her to improve her postnasal drip and she can uses only as needed to minimize too much irritation to her nasal mucosa. 06/28/2020 the patient is here for pulmonary follow-up visit. Overall she is doing well. She does complaint of some dyspnea on exertion mild in severity. She did recently have a CT scan of the chest that was personally by me. She had done at [facility]. It did demonstrate some slight interval worsening of the nodular density. Based on her previous biopsies this is consistent with inflammatory process. The patient has granulomas therefore I stated above need to consider sarcoidosis versus smoldering infectious process. She has had multiple bronchoscopies negative for any AFB. In addition to that the patient does have a history of Sjogren's and currently stable put on her current therapy. I will optimize respiratory therapy switching her from QVAR to Symbicort. In the meantime will plan to repeat the CT scan in 6 months. If she has interval worsening of the nodular density that will plan for bronchoscopy at the time. I will repeat some blood work including Jose M level and other inflammatory markers. 12/30/2020 the patient is here for pulmonary follow-up visit. We had switch her inhaler from the QVAR to a combination inhaler, Breo. She really has not with seen any significant improvement in her respiratory capacity while on this inhaler. The medication is also very expensive for her and she is running into a donut hole. She still continues to have dyspnea on exertion. When she stops the medication she needs to closely monitor her symptoms and see if there is any worsening. If she does have worsening that she needs to go back on respiratory inhalers. The patient also had a CT scan of the chest that was personally by me. I also reviewed her CT scan from 6 months ago which had at [facility]. It appears that some of the nodular densities are improved and decreased overall. I will request that radiology also is able to an addendum to provide a comparison between the 2 studies as well. Based on the persistent nodular densities I will request a repeat CT scan in a year unless the addendum suggest that she should have 1 sooner. 06/29/2021 the patient is here for pulmonary follow-up visit. Overall respiratory status seems to be better. She does not have any inhalers at this time. She was diagnosed with atrial fibrillation and subsequently started on Eliquis. She is also taking metoprolol for rate controlling agent. The patient did undergo pulmonary function studies which we personally reviewed demonstrating mild restrictive ventilatory defect with the mild to moderate diffusion impairment. The patient did have a lung resection in the past. The diffusion impairment does correct to normal when corrected for the alveolar volume. At this point the patient does not need any additional inhalers. Will follow in pulmonary nodules. She is scheduled to undergo repeat CT scan sometime in the fall 2021. Will have her follow up at that time to review the results. Otherwise patient is without any other complaints. 01/02/2022 the patient is here for a pulmonary follow-up visit. The patient overall has been doing well. Denies any respiratory complaints. She denies any night sweats. She has good appetite and has not had any weight loss. She did have a repeat CT scan of the chest done in November 2021 which was personally by me. I did also review the images with the patient. It appears that she does have multiple nodular densities that have involved in the left upper lobe area. In addition to that she has a pulmonary nodule in the left lower lobe that is measuring now 8 mm in size. Therefore has increased in size. She has a history of breast cancer. She also has a history of a VATS resection in the past suggesting granulomas. In view of the multiple nodular densities in history of breast cancer the best option will be to get a PET scan. Depending on the findings we can consider bronchoscopy versus biopsy. She is blood thinners with Eliquis so therefore additional imaging studies will be important In order to increase the yield of any invasive or semi-invasive diagnostic interventions. 03/07/2022 the patient is here for pulmonary follow-up visit. The patient is doing well. Denies any significant shortness of breath or cough. She is concerned about the CT scan findings that she had back in the fall. We did follow-up with a PET scan. It appears to demonstrate that the nodular densities have an FDG activity about 2.3 FDG. H was reassuring knowing that the threshold this typically 2.5. Although malignancies in differential this is likely to be inflammatory process. Her last biopsy demonstrated that she had granulomas. Therefore small likely that this is likely to be related to sarcoid versus a smoldering infection. Will plan to undergo bronchoscopy at this time. She does take Eliquis and therefore she would have to stop the Eliquis at least for 3 days prior to the biopsy. 03/30/2022 the patient is here for a pulmonary follow-up visit. The patient continues to have symptoms of cough. Actually she is status post bronchoscopy and her cough is actually worse now. She feels rumbling and chest congestion. Moderate severity. She initially noted some scant blood in her sputum which is expected due to the fact that she takes Eliquis and also she had biopsies. We did review her results. Her biopsies demonstrated chronic inflammation of the transbronchial biopsies. Her washings also demonstrated inflammatory changes. The patient did have evidence of bronchitis as well. Will go ahead and start her on a small dose of prednisone and antibiotics at this time. All her cultures are negative. The main culture will waiting for his the AFB cultures for mycobacterial disease which are still pending. 06/06/2022 the patient is here for a pulmonary follow-up visit. Overall she continues to be about the same. She complains about intermittent cough. Also dyspnea on exertion [id number] severity when going up an incline. She denies any rashes. Denies any visual changes. We did again look at the microbiology. Or AFB and fungal cultures are negative. Therefore ruling out an infectious process causing the granulomas. In view of the negative microbiology this is consistent with sarcoidosis. The patient has some symptoms in addition to that has interval worsening of the parenchymal lung disease. Therefore the patient agrees to go ahead and treat with prednisone for the next few months and then repeat the CT scan of the chest in 3 months to see if there is improvement. The patient was started 30 mg. If however this is difficult for her to tolerate she can always decrease it down to 20. I am hopeful that she can wean down to 10 mg and then continue on that smaller does until her CT scan. The patient understands that if the CAT scan does demonstrate any improvement at that point I will recommend she a follow-up visit with thoracic surgery. 10/10/2022 the patient is here for a pulmonary follow-up visit. She is down to 10 mg of prednisone. Overall her breathing is better. She also had a CT scan of the chest that we personally viewed together. Appears that the nodular density in the left upper lobe has completely subsided. 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 The patient also has a history of Sjogren's. While she was in the prednisone she did have a flare up with significant salivary gland inflammation. She was seen by her roof foreman. She was recommended to continue on the prednisone. Now that she is down to 10 mg will going to wean her off slowly. Hopefully within the next 6 weeks she will be off the prednisone altogether. Although, based on the degree of inflammation based on her Sjogren's she may need some steroid sparing agent to help her modulate her symptoms and the inflammatory process. Therefore we did talk about immunomodulator therapy such as with methotrexate or CellCept. Clinically the patient is doing better she still on 10 mg of prednisone. Therefore will going to continue to wean off slowly the prednisone and when she is off she is going to have an x-ray. Subsequently after that if the x-rays okay she will return sometime in the end of the year after a CT scan of the chest to see if there is any progression of disease. At any point that she has any worsening symptoms she is to call. She is in December she is going to have an appoint with roof foreman and they can discuss the need for any additional therapies when she is off prednisone. 02/22/2023 the patient is here for a pulmonary follow-up visit. The patient overall feeling well. Denies worsening cough shortness of breath. She has been off the prednisone altogether. She does continue the Plaquenil for the Sjogren's. Although her dry mouth got significantly better after changing her toothpaste. She did have a repeat CT scan of the chest which was personally by me. It appears that she has a new 8 mm nodular density the base. We did review her previous imaging studies symptoms was not present. Although the patient continues to be asymptomatic will hold off on any additional steroid therapy. Will plan to repeat the CT scan in 6 months, unless, the patient gets worsening symptoms she would call for an earlier assessment. [facility] Medical History (Updated 02/26/23 @ 22:39 by Torrey Ortiz MD) Sarcoidosis Atrial fibrillation GERD (gastroesophageal reflux disease) History of breast cancer (~1997) Chronic rhinitis Sjogren's disease Asthma Pulmonary nodules Surgical History (Updated 03/16/22 @ 14:03 by Mercedes Mota RN) History of bronchoscopy History of lung surgery Social History (Updated 12/30/20 @ 11:16 by FLORENTINO Leo) Are you a primary personal care worker to a significant other at home: No Patient Tobacco Use Status: Never used Tobacco Review of Systems Const Denies night sweats ENT Denies change in voice, Denies lip swelling, Denies mouth pain, Reports nasal congestion, Reports nasal discharge and Denies tongue swelling Card Denies chest pain, Denies palpitations and Reports dyspnea on exertion Resp Reports chest congestion, Reports cough and Reports dyspnea on exertion GI Denies abdominal pain Musc Denies no additional complaints Neuro Denies Neuro-related abnormal movements Psych Denies no additional complaints Endo Denies palpitations Ravinder/Lymph Denies easy bleeding and Denies lymphadenopathy Aller/Immun Denies lip swelling and Denies tongue swelling Physical Exam Vital Signs: Last Vital Signs Pulse 60 02/22/23 14:01 BP 118/60 02/22/23 14:01 Pulse Ox 96 02/22/23 14:01 Oxygen Delivery Method Room Air 02/22/23 14:01 BMI result Body Mass Index 31.8 Const General: alert HEENT Head: Yes atraumatic Eyes Pupils: Equal, round and reactive pupils present Neck Neck: Yes supple Chest Chest palpation & inspection: normal inspection of the chest Resp Auscultation: diminished lung sounds Cardio Rate: regular rate Rhythm: regular rhythm Heart sounds: S1 normal heart sound present and S2 normal heart sound present GI Palpation (GI): Soft to palpation and nontender Auscultation: normal bowel sounds Skin General skin exam: rashes and/or lesions noted Neuro Cranial nerves: Yes Equal, round and reactive pupils present Results Reviewed Results Reviewed: [address] [address] [address] Scan Report Signed Patient: Sara Dover MR#: [id number] : 1945 Acct:[id number] Age/Sex: 77 / F ADM Date: 01/26/23 Loc: HO.CT Attending Dr: Torrey Ortiz MD Ordering Physician: Torrey Ortiz MD Date of Service: 01/26/23 Procedure(s): CT chest wo IV con Accession Number(s): [id number] cc: Nubia De Anda MD; Torrey Ortiz MD~ EXAMINATION: CT CHEST WITHOUT CONTRAST CLINICAL INFORMATION: Prior abnormal imaging. COMPARISON: 09/04/2022 TECHNIQUE: Multidetector volumetric CT imaging of the chest was done. Axial MIP volume rendering provided. Sagittal and coronal reformatted images were obtained. This CT examination was performed using dose optimization techniques as appropriate, variously including the following: *Automated exposure control *Adjustment of mA and/or kV according to patient size (this includes techniques or standardized protocols for targeted exams where dose is matched to indication/reason for exam; i.e. extremities or head) *Use of iterative reconstruction technique DLP: 169 mGy-cm FINDINGS: LUNGS: Postsurgical changes in the left upper lobe following wedge resection. There are persistent tree-in-bud opacities in the superior segment of the left lower lobe. The following nodules are stable: 7 mm perifissural nodule in the right upper lobe on image 266 of series 5. 4 mm right lower lobe nodule on image 307 of series 5. 4 mm right lower lobe nodule on image 355 of series 5. The following nodules are new: 4 mm subpleural nodule left lower lobe on image 428 of series 5. 8 mm subpleural nodule left lower lobe on image 439 of series 5. 8 mm left lower lobe nodule on image 504 of series 5. MEDIASTINUM: No bulky axillary, hilar or mediastinal lymphadenopathy. Great vessels are unchanged in caliber. Heart size is normal. No pericardial effusion. CORONARY ARTERY CALCIFICATION: Moderate. PLEURA: There is no pleural effusion. No pleural mass or thickening. AXILLA: Multiple surgical clips in the right axilla. There is persistent infiltration of the subcutaneous tissues of the right chest wall. UPPER ABDOMEN: Small hiatal hernia. Cholelithiasis. OSSEOUS STRUCTURES: No destructive bone lesions. CT/CT chest wo IV con IMPRESSION: New subpleural left lower lobe nodules measuring up to 8 mm. Follow-up chest CT in 3-6 months is advised. Dictated By: Kody Carrillo MD Signed By: <Electronically signed by Kody Carrillo MD in OV> 01/31/23 1337 DD/ 1330 TD/TT: Bobbin Trucker: Assessment & Plan Assessment & Plan (1) Asthma: Code(s): J45.909 - Unspecified asthma, uncomplicated Qualifiers: Asthma complication type: uncomplicated Asthma persistence: persistent Asthma severity: moderate Qualified Code(s): J45.40 - Moderate persistent asthma, uncomplicated (2) Pulmonary nodules: Code(s): R91.8 - Other nonspecific abnormal finding of lung field (3) Sjogren's disease: Code(s): M35.00 - Sjogren syndrome, unspecified Qualifiers: Sjogren's organ involvement: unspecified organ involvement Qualified Code(s): M35.00 - Sicca syndrome, unspecified (4) Chronic rhinitis: Code(s): J31.0 - Chronic rhinitis (5) Sarcoidosis: Code(s): D86.9 - Sarcoidosis, unspecified Plan continue plaquenil F/U with Rheumatology repeat CT chest in 6 month F/U 6 months or sooner if any worsenig respiratory symptoms Orders: Orders CT chest wo IV con 6 Months R91.8 - Other nonspecific abnormal finding of lung field Coding Level of Care Code Est Pt Level 4 (26527) Diagnoses Moderate persistent asthma without complication J45.40 Asthma complication type: uncomplicated Asthma persistence: persistent Asthma severity: moderate Pulmonary nodules R91.8 Sjogren's syndrome, with unspecified organ involvement M35.00 Sjogren's organ involvement: unspecified organ involvement Chronic rhinitis J31.0 Sarcoidosis D86.9 Time Spent (min) 17
[2023-02-22 14:01] VITALS: BP 118/60; PULSE 60; O2SAT 96; BMI 31.8
== END 2023-02-22 14:24 | disposition home or self-care (01) ==
PROVIDERS: PCP Internal Medicine; Visit Provider Hospitalist
DX: J45.40 Moderate persistent asthma, uncomplicated (principal); R91.8 Other nonspecific abnormal finding of lung field; M35.00 Sjogren syndrome, unspecified; J31.0 Chronic rhinitis; D86.9 Sarcoidosis, unspecified
CPT/HCPCS: 99214

== ENCOUNTER → 2023-02-22 13:53 | Outpatient (BNVA) | payer MEDICARE, SELFPAY | PROVIDERS: PCP Internal Medicine; Visit Provider Hospitalist | DX: R91.8 Other nonspecific abnormal finding of lung field (principal); J45.40 Moderate persistent asthma, uncomplicated; J31.0 Chronic rhinitis; M35.00 Sjogren syndrome, unspecified; D86.9 Sarcoidosis, unspecified | CPT/HCPCS: 99212 ==

== ENCOUNTER 2023-08-21 09:58 | Outpatient (REF) | payer MEDICARE, SELFPAY ==
--- NOTE | ~2023-08-21 | CT_ITS ---
EXAMINATION: CT CHEST WITHOUT CONTRAST CLINICAL INFORMATION: Nonspecific pulmonary finding. COMPARISON: 01/26/2023 TECHNIQUE: Multidetector volumetric CT imaging of the chest was done. Axial MIP volume rendering provided. Sagittal and coronal reformatted images were obtained. This CT examination was performed using dose optimization techniques as appropriate, variously including the following: *Automated exposure control *Adjustment of mA and/or kV according to patient size (this includes techniques or standardized protocols for targeted exams where dose is matched to indication/reason for exam; i.e. extremities or head) *Use of iterative reconstruction technique DLP: 163 mGy-cm FINDINGS: LUNGS: Enlargement of the main pulmonary artery measuring up to 2.5 cm likely reflects underlying pulmonary arterial hypertension. Left lower lobe 8 mm nodule is unchanged (5:497). Left lower lobe subpleural 8 mm nodule (5:431), unchanged. Left lower lobe 3 mm nodule (5:341), unchanged. No new or enlarging pulmonary nodule. Central airways are patent. Postsurgical changes of the left upper lobe following wedge resection. PLEURA: No pleural effusion. MEDIASTINUM: No cardiomegaly. Aorta and pulmonary artery are normal in caliber. No mediastinal adenopathy. Lack of IV contrast limits fashion for hilar adenopathy. CORONARY ARTERY CALCIFICATION: Coronary artery calcifications are present. CHEST WALL/AXILLA: Right axillary surgical clips. Status post right mastectomy. UPPER ABDOMEN: Unremarkable. OSSEOUS STRUCTURES: Degenerative changes of the thoracic spine. CT/CT chest wo IV con IMPRESSION: Left lower lobe pulmonary nodules measuring up to 8 mm are unchanged. Follow-up per oncologic protocol. No new or enlarging pulmonary nodule.
== END 2023-08-21 09:59 | disposition home or self-care (01) ==
LOC: HO.CT 09:58
PROVIDERS: Visit Provider Hospitalist
DX: R91.8 Other nonspecific abnormal finding of lung field (principal)
CPT/HCPCS: 71250

== ENCOUNTER 2023-08-22 10:15 | Outpatient (AMB) | payer MEDICARE, SELFPAY ==
[2023-08-22 10:15] VITALS: BMI 31.1
--- NOTE | 2023-08-22 10:15 | A.OFFVIS_ITS ---
Vital Signs 08/22/23 10:15 Height 5 ft 4 in Weight 181 lb BMI 31.1 Intake Visit Reasons: Pulmonary Nodules Silk Top Hat Body Maker Required: No Allergies lisinopril Adverse Reaction (Intermediate, Verified 08/22/23 10:16) Cough HPI Comments Details: The patient is a 78-year-old woman with a known history of breast cancer in addition to pulmonary nodules. Apparently she was diagnosed with the breast cancer back in 1997. She was also found to have a nodule or is density in her neck and then followed up with a CT scan of the chest noting multiple pulmonary nodules. Indeed there were concerned because of the size of the nodules and she did undergo a PET scan especially with a history of breast cancer. In the was abnormal with a positive activity in a nodular density in her lungs and also with the lymph node. Her lymph node which is reactive lymphocytes without any evidence of any lymphoma. Apparently the biopsy results I do not have however per report he likely had some granulomas suggesting a mycobacterial process. She has had multiple bronchoscopies negative for any mycobacterial organisms. She has had does at [facility]. Recently she did follow-up with thoracic surgery the reviewed her CT scan from [facility] done April and plan to do another 1 in July. 09/29/2019 the patient is here for pulmonary follow-up visit. Overall she is doing well. She denies any respiratory complaints at this time. No shortness of breath or coughing. She did have a recent CT scan of the chest that was personally reviewed by me and also the patient was present. It appears that the pulmonary nodules that were much significant back in April of 2019 have decrease in size. It is likely a inflammatory process. We had to suspicion of granulomas on her previous biopsy it does bring the the question of sarcoidosis versus hypersensitivity pneumonitis. Additional blood work will be helpful at this time. She does follow up closely with thoracic surgery and she is scheduled for repeat CAT scan in 6 months. 21 the patient is here for pulmonary follow-up visit. Overall the patient has been doing well from a respiratory status. Her only major complaint is significant runny nose and postnasal drip. She does have a history of Sjogren's disease and therefore has to be very careful with medications and inhalers. She did undergo a CT scan of the chest at [facility] demonstrating waxing waning pulmonary nodules with 1 nodule that appears to be enlarging. Therefore she is scheduled to have a repeat CT scan of the chest at [facility] in April 2020. The patient in follow-up thoracic surgery. She is already status post wedge resection demonstrating some granulomas. Her blood work was negative for any active sarcoidosis. Her blood work did demonstrate an elevated JUAN PABLO. With her history of connective tissue disease we are aware that lung involvement from this connective tissue diseases are possible. In the meantime the patient will try a nasal spray to see if we can get her to improve her postnasal drip and she can uses only as needed to minimize too much irritation to her nasal mucosa. 06/28/2020 the patient is here for pulmonary follow-up visit. Overall she is doing well. She does complaint of some dyspnea on exertion mild in severity. She did recently have a CT scan of the chest that was personally by me. She had done at [facility]. It did demonstrate some slight interval worsening of the nodular density. Based on her previous biopsies this is consistent with inflammatory process. The patient has granulomas therefore I stated above need to consider sarcoidosis versus smoldering infectious process. She has had multiple bronchoscopies negative for any AFB. In addition to that the patient does have a history of Sjogren's and currently stable put on her current therapy. I will optimize respiratory therapy switching her from QVAR to Symbic ort. In the meantime will plan to repeat the CT scan in 6 months. If she has interval worsening of the nodular density that will plan for bronchoscopy at the time. I will repeat some blood work including Jose M level and other inflammatory markers. 12/30/2020 the patient is here for pulmonary follow-up visit. We had switch her inhaler from the QVAR to a combination inhaler, Breo. She really has not with seen any significant improvement in her respiratory capacity while on this inhaler. The medication is also very expensive for her and she is running into a donut hole. She still continues to have dyspnea on exertion. When she stops the medication she needs to closely monitor her symptoms and see if there is any worsening. If she does have worsening that she needs to go back on re spiratory inhalers. The patient also had a CT scan of the chest that was personally by me. I also reviewed her CT scan from 6 months ago which had at [facility]. It appears that some of the nodular densities are improved and decreased overall. I will request that radiology also is able to an addendum to provide a comparison between the 2 studies as well. Based on the persistent nodular densities I will request a repeat CT scan in a year unless the addendum suggest that she should have 1 sooner. 06/29/2021 the patient is here for pulmonary follow-up visit. Overall respiratory status seems to be better. She does not have any inhalers at this time. She was diagnosed with atrial fibrillation and subsequently started on Eliquis. She is also taking metoprolol for rate controlling agent. The patient did undergo pulmonary function studies which we personally reviewed demonstrating mild restrictive ventilatory defect with the mild to moderate diffusion impairment. The patient did have a lung resection in the past. The diffusion impairment does correct to normal when corrected for the alveolar volume. At this point the patient does not need any additional inhalers. Will follow in pulmonary nodules. She is scheduled to undergo repeat CT scan sometime in the fall 2021. Will have her follow up at that time to review the results. Otherwise patient is without any other complaints. 01/02/2022 the patient is here for a pulmonary follow-up visit. The patient overall has been doing well. Denies any respiratory complaints. She denies any night sweats. She has good appetite and has not had any weight loss. She did have a repeat CT scan of the chest done in November 2021 which was personally by me. I did also review the images with the patient. It appears that she does have multiple nodular densities that have involved in the left upper lobe area. In addition to that she has a pulmonary nodule in the left lower lobe that is measuring now 8 mm in size. Therefore has increased in size. She has a history of breast cancer. She also has a history of a VATS resection in the past suggesting granulomas. In view of the multiple nodular densities in history of breast cancer the best option will be to get a PET scan. Depending on the findings we can consider bronchoscopy versus biopsy. She is blood thinners with Eliquis so therefore additional imaging studies will be important In order to increase the yield of any invasive or semi-invasive diagnostic interventions. 03/07/2022 the patient is here for pulmonary follow-up visit. The patient is doing well. Denies any significant shortness of breath or cough. She is concerned about the CT scan findings that she had back in the fall. We did follow-up with a PET scan. It appears to demonstrate that the nodular densities have an FDG activity about 2.3 FDG. H was reassuring knowing that the threshold this typically 2.5. Although malignancies in differential this is likely to be inflammatory process. Her last biopsy demonstrated that she had granulomas. Therefore small likely that this is likely to be related to sarcoid versus a smoldering infection. Will plan to undergo bronchoscopy at this time. She does take Eliquis and therefore she would have to stop the Eliquis at least for 3 days prior to the biopsy. 03/30/2022 the patient is here for a pulmonary follow-up visit. The patient continues to have symptoms of cough. Actually she is status post bronchoscopy and her cough is actually worse now. She feels rumbling and chest congestion. Moderate severity. She initially noted some scant blood in her sputum which is expected due to the fact that she takes Eliquis and also she had biopsies. We did review her results. Her biopsies demonstrated chronic inflammation of the transbronchial biopsies. Her washings also demonstrated inflammatory changes. The patient did have evidence of bronchitis as well. Will go ahead and start her on a small dose of prednisone and antibiotics at this time. All her cultures are negative. The main culture will waiting for his the AFB cultures for mycobacterial disease which are still pending. 06/06/2022 the patient is here for a pulmonary follow-up visit. Overall she continues to be about the same. She complains about intermittent cough. Also dyspnea on exertion [id number] severity when going up an incline. She denies any rashes. Denies any visual changes. We did again look at the microbiology. Or AFB and fungal cultures are negative. Therefore ruling out an infectious process causing the granulomas. In view of the negative microbiology this is consistent with sarcoidosis. The patient has some symptoms in addition to that has interval worsening of the parenchymal lung disease. Therefore the patient agrees to go ahead and treat with prednisone for the next few months and then repeat the CT scan of the chest in 3 months to see if there is improvement. The patient was started 30 mg. If however this is difficult for her to tolerate she can always decrease it down to 20. I am hopeful that she can wean down to 10 mg and then continue on that smaller does until her CT scan. The patient understands that if the CAT scan does demonstrate any improvement at that point I will recommend she a follow-up visit with thoracic surgery. 10/10/2022 the patient is here for a pulmonary follow-up visit. She is down to 10 mg of prednisone. Overall her breathing is better. She also had a CT scan of the chest that we personally viewed together. Appears that the nodular density in the left upper lobe has completely subsided. 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 The patient also has a history of Sjogren's. While she was in the prednisone she did have a flare up with significant salivary gland inflammation. She was seen by her inbound call center representative. She was recommended to continue on the prednisone. Now that she is down to 10 mg will going to wean her off slowly. Hopefully within the next 6 weeks she will be off the prednisone altogether. Although, based on the degree of inflammation based on her Sjogren's she may need some steroid sparing agent to help her modulate her symptoms and the inflammatory process. Therefore we did talk about immunomodulator therapy such as with methotrexate or CellCept. Clinically the patient is doing better she still on 10 mg of prednisone. Therefore will going to continue to wean off slowly the prednisone and when she is off she is going to have an x-ray. Subsequently after that if the x-rays okay she will return sometime in the end of the year after a CT scan of the chest to see if there is any progression of disease. At any point that she has any worsening symptoms she is to call. She is in December she is going to have an appoint with inbound call center representative and they can discuss the need for any additional therapies when she is off prednisone. 02/22/2023 the patient is here for a pulmonary follow-up visit. The patient overall feeling well. Denies worsening cough shortness of breath. She has been off the prednisone altogether. She does continue the Plaquenil for the Sjogren's. Although her dry mouth got significantly better after changing her toothpaste. She did have a repeat CT scan of the chest which was personally by me. It appears that she has a new 8 mm nodular density the base. We did review her previous imaging studies symptoms was not present. Although the patient continues to be asymptomatic will hold off on any additional steroid therapy. Will plan to repeat the CT scan in 6 months, unless, the patient gets worsening symptoms she would call for an earlier assessment. 08/22/2023 the patient has a telehealth visit today. She had been doing well until the last several days when she started developing flu-like symptoms. Sinus headaches. She did test positive for COVID yesterday. She feels like she has been sick for more than several days so therefore unlikely that antiviral therapy is going to be effective. She also feels like her symptoms are pretty mild and does not feel like she really needs to take anything. She recently had a CT scan of the chest actually yesterday 08/21/2023 which I personally reviewed and compared to her previous CT scan from 6 months ago. However, has not been officially read yet. She did have a repeat CT scan because of a new 8 mm pulmonary nodule in the left lower lobe. I did compare it seems like it is unchanged when compared to the previous CT scan. Therefore will plan to repeat the CT scan again 6 months will re-evaluate then. However, the patient has any worsening symptoms specially productive cough with shortness of breath due to the COVID she has to call the office prior to this weekend so we can consider additional therapies. Otherwise will follow-up in [address] scan. Also to note further recommendation based on forthcoming did have from the official read of the CT scan. [facility] Medical History (Updated 08/22/23 @ 22:20 by Torrey Ortiz MD) Sarcoidosis Atrial fibrillation GERD (gastroesophageal reflux disease) History of breast cancer (~1997) Chronic rhinitis Sjogren's disease Asthma Pulmonary nodules Surgical History (Updated 03/16/22 @ 14:03 by Mercedes Mota RN) History of bronchoscopy History of lung surgery Social History (Updated 12/30/20 @ 11:16 by FLORENTINO Leo) Are you a primary care management specialist to a significant other at home: No Patient Tobacco Use Status: Never used Tobacco Review of Systems Const Denies night sweats ENT Denies change in voice, Denies lip swelling, Denies mouth pain, Reports nasal congestion, Reports nasal discharge and Denies tongue swelling Card Denies chest pain, Denies palpitations and Reports dyspnea on exertion Resp Reports chest congestion, Reports cough and Reports dyspnea on exertion GI Denies abdominal pain Musc Denies no additional complaints Neuro Denies Neuro-related abnormal movements Psych Denies no additional complaints Endo Denies palpitations Ravinder/Lymph Denies easy bleeding and Denies lymphadenopathy Aller/Immun Denies lip swelling and Denies tongue swelling Physical Exam Vital Signs: BMI result Body Mass Index 31.1 Const General: alert Orientation/consciousness: patient oriented x3 Neuro General: patient oriented x3 Telehealth Telehealth Telehealth Platform: Telephone Location of provider rendering services: practice address Location of patient: address on file Patient Identification confirmed using: Name, : Yes Telehealth method: voice only Patient verbally consented to treatment: Yes Patient verbally consented to billing insurance company: Yes Patient informed of any privacy concerns related to visit: Yes Assessment & Plan Assessment & Plan (1) COVID-19: Code(s): U07.1 - COVID-19 Category: Medical (2) Pulmonary nodules: Code(s): R91.8 - Other nonspecific abnormal finding of lung field Category: Medical (3) Asthma: Code(s): J45.909 - Unspecified asthma, uncomplicated Category: Medical Qualifiers: Asthma complication type: uncomplicated Asthma persistence: persistent Asthma severity: moderate Qualified Code(s): J45.40 - Moderate persistent asthma, uncomplicated (4) Sjogren's disease: Code(s): M35.00 - Sjogren syndrome, unspecified Category: Medical Qualifiers: Sjogren's organ involvement: unspecified organ involvement Qualified Code(s): M35.00 - Sicca syndrome, unspecified (5) Chronic rhinitis: Code(s): J31.0 - Chronic rhinitis Category: Medical (6) Sarcoidosis: Code(s): D86.9 - Sarcoidosis, unspecified Category: Medical Plan Opted on not staring antiviral based on symptomatic for an unclear amount of days. Will call if worsening symptoms to start therapy continue plaquenil repeat CT chest in 6 month F/U 6 months or sooner if any worsenig respiratory symptoms Orders: Orders CT chest wo IV con 6 Months R91.8 - Other nonspecific abnormal finding of lung field Coding Level of Care Code Tele Est Pt Level 4 (05552) Diagnoses COVID-19 U07.1 Pulmonary nodules R91.8 Moderate persistent asthma without complication J45.40 Asthma complication type: uncomplicated Asthma persistence: persistent Asthma severity: moderate Sjogren's syndrome, with unspecified organ involvement M35.00 Sjogren's organ involvement: unspecified organ involvement Chronic rhinitis J31.0 Sarcoidosis D86.9 Time Spent (min) 15
== END 2023-08-22 10:36 | disposition home or self-care (01) ==
LOC: HO.HPS 10:15
PROVIDERS: PCP Internal Medicine; Visit Provider Hospitalist
DX: U07.1 COVID-19 (principal); R91.8 Other nonspecific abnormal finding of lung field; J45.40 Moderate persistent asthma, uncomplicated; M35.00 Sjogren syndrome, unspecified; J31.0 Chronic rhinitis; D86.9 Sarcoidosis, unspecified
CPT/HCPCS: 99442

== ENCOUNTER → 2023-08-22 10:15 | Outpatient (BNVA) | payer MEDICARE, SELFPAY | PROVIDERS: PCP Internal Medicine; Visit Provider Hospitalist | DX: J44.9 Chronic obstructive pulmonary disease, unspecified (principal); R91.8 Other nonspecific abnormal finding of lung field ==

== ENCOUNTER 2024-02-05 10:48 | Outpatient (REF) | payer MEDICARE, SELFPAY | END 2024-02-05 10:49 | disposition home or self-care (01) | LOC: HO.CT 10:48 | PROVIDERS: PCP Internal Medicine; Visit Provider Hospitalist | DX: R91.8 Other nonspecific abnormal finding of lung field (principal) | CPT/HCPCS: 71250 ==

== ENCOUNTER → 2024-02-05 10:48 | Outpatient (BNV) | payer MEDICARE, SELFPAY | PROVIDERS: PCP Internal Medicine; Visit Provider Radiology Diagnostic Radiology | DX: R91.8 Other nonspecific abnormal finding of lung field (principal) | CPT/HCPCS: 71250 ==

== ENCOUNTER 2024-02-15 13:10 | Outpatient (AMB) | payer MEDICARE, SELFPAY ==
[2024-02-15 13:15] VITALS: BP 130/68; PULSE 68; O2SAT 99; BMI 31.6
--- NOTE | 2024-02-15 13:15 | A.OFFVIS_ITS ---
Vital Signs 02/15/24 13:15 Height 5 ft 4 in Weight 184 lb 1.376 oz BMI 31.6 BP 130/68 Blood Pressure Location Lt brachial Position Sitting Pulse 68 Pulse Source Pulse Oximeter Pulse Oximetry (%) 99 Oxygen Delivery Method Room Air Intake Visit Reasons: Pulm Nodules/CT Follow Up Fbi Sharpshooter Required: No Allergies lisinopril Adverse Reaction (Intermediate, Verified 02/15/24 13:19) Cough HPI Comments Details: The patient is a 78-year-old woman with a known history of breast cancer in addition to pulmonary nodules. Apparently she was diagnosed with the breast cancer back in 1997. She was also found to have a nodule or is density in her neck and then followed up with a CT scan of the chest noting multiple pulmonary nodules. Indeed there were concerned because of the size of the nodules and she did undergo a PET scan especially with a history of breast cancer. In the was abnormal with a positive activity in a nodular density in her lungs and also with the lymph node. Her lymph node which is reactive lymphocytes without any evidence of any lymphoma. Apparently the biopsy results I do not have however per report he likely had some granulomas suggesting a mycobacterial process. She has had multiple bronchoscopies negative for any mycobacterial organisms. She has had does at [facility]. Recently she did follow-up with thoracic surgery the reviewed her CT scan from [facility] done April and plan to do another 1 in July. 09/29/2019 the patient is here for pulmonary follow-up visit. Overall she is doing well. She denies any respiratory complaints at this time. No shortness of breath or coughing. She did have a recent CT scan of the chest that was personally reviewed by me and also the patient was present. It appears that the pulmonary nodules that were much significant back in April of 2019 have decrease in size. It is likely a inflammatory process. We had to suspicion of granulomas on her previous biopsy it does bring the the question of sarcoidosis versus hypersensitivity pneumonitis. Additional blood work will be helpful at this time. She does follow up closely with thoracic surgery and she is scheduled for repeat CAT scan in 6 months. the patient is here for pulmonary follow-up visit. Overall the patient has been doing well from a respiratory status. Her only major complaint is significant runny nose and postnasal drip. She does have a history of Sjogren's disease and therefore has to be very careful with medications and inhalers. She did undergo a CT scan of the chest at [facility] demonstrating waxing waning pulmonary nodules with 1 nodule that appears to be enlarging. Therefore she is scheduled to have a repeat CT scan of the chest at [facility] in April 2020. The patient in follow-up thoracic surgery. She is already status post wedge resection demonstrating some granulomas. Her blood work was negative for any active sarcoidosis. Her blood work did demonstrate an elevated JUAN PABLO. With her history of connective tissue disease we are aware that lung involvement from this connective tissue diseases are possible. In the meantime the patient will try a nasal spray to see if we can get her to improve her postnasal drip and she can uses only as needed to minimize too much irritation to her nasal mucosa. 06/28/2020 the patient is here for pulmonary follow-up visit. Overall she is doing well. She does complaint of some dyspnea on exertion mild in severity. She did recently have a CT scan of the chest that was personally by me. She had done at [facility]. It did demonstrate some slight interval worsening of the nodular density. Based on her previous biopsies this is consistent with inflammatory process. The patient has granulomas therefore I stated above need to consider sarcoidosis versus smoldering infectious process. She has had multiple bronchoscopies negative for any AFB. In addition to that the patient does have a history of Sjogren's and currently stable put on her current therapy. I will optimize respiratory therapy switching her from QVAR to Symbicort. In the meantime will plan to repeat the CT scan in 6 months. If she has interval worsening of the nodular density that will plan for bronchoscopy at the time. I will repeat some blood work including Jose M level and other inflam matory markers. 12/30/2020 the patient is here for pulmonary follow-up visit. We had switch her inhaler from the QVAR to a combination inhaler, Breo. She really has not with seen any significant improvement in her respiratory capacity while on this inhaler. The medication is also very expensive for her and she is running into a donut hole. She still continues to have dyspnea on exertion. When she stops the medication she needs to closely monitor her symptoms and see if there is any worsening. If she does have worsening that she needs to go back on respiratory inhalers. The patient also had a CT scan of the chest that was personally by me. I also reviewed her CT scan from 6 months ago which had at [facility]. It appears that some of the nodular densities are improved and decreased overall. I will request that radiology also is able to an addendum to provide a comparison between the 2 studies as well. Based on the persistent nodular densities I will request a repeat CT scan in a year unless the addendum suggest that she should have 1 sooner. 06/29/2021 the patient is here for pulmonary follow-up visit. Overall respiratory status seems to be better. She does not have any inhalers at this time. She was diagnosed with atrial fibrillation and subsequently started on Eliquis. She is also taking metoprolol for rate controlling agent. The patient did undergo pulmonary function studies which we personally reviewed demonstrating mild restrictive ventilatory defect with the mild to moderate diffusion impairment. The patient did have a lung resection in the past. The diffusion impairment does correct to normal when corrected for the alveolar volume. At this point the patient does not need any additional inhalers. Will follow in pulmonary nodules. She is scheduled to undergo repeat CT scan sometime in the fall 2021. Will have her follow up at that time to review the results. Otherwise patient is without any other complaints. 01/02/2022 the patient is here for a pulmonary follow-up visit. The patient overall has been doing well. Denies any respiratory complaints. She denies any night sweats. She has good appetite and has not had any weight loss. She did have a repeat CT scan of the chest done in November 2021 which was personally by me. I did also review the images with the patient. It appears that she does have multiple nodular densities that have involved in the left upper lobe area. In addition to that she has a pulmonary nodule in the left lower lobe that is measuring now 8 mm in size. Therefore has increased in size. She has a history of breast cancer. She also has a history of a VATS resection in the past suggesting granulomas. In view of the multiple nodular densities in history of breast cancer the best option will be to get a PET scan. Depending on the findings we can consider bronchoscopy versus biopsy. She is blood thinners with Eliquis so therefore additional imaging studies will be important In order to increase the yield of any invasive or semi-invasive diagnostic interventions. 03/07/2022 the patient is here for pulmonary follow-up visit. The patient is doing well. Denies any significant shortness of breath or cough. She is concerned about the CT scan findings that she had back in the fall. We did follow-up with a PET scan. It appears to demonstrate that the nodular densities have an FDG activity about 2.3 FDG. H was reassuring knowing that the threshold this typically 2.5. Although malignancies in differential this is likely to be inflammatory process. Her last biopsy demonstrated that she had granulomas. Therefore small likely that this is likely to be related to sarcoid versus a smoldering infection. Will plan to undergo bronchoscopy at this time. She does take Eliquis and therefore she would have to stop the Eliquis at least for 3 days prior to the biopsy. 03/30/2022 the patient is here for a pulmonary follow-up visit. The miles bahena continues to have symptoms of cough. Actually she is status post bronchoscopy and her cough is actually worse now. She feels rumbling and chest congestion. Moderate severity. She initially noted some scant blood in her sputum which is expected due to the fact that she takes Eliquis and also she had biopsies. We did review her results. Her biopsies demonstrated chronic inflammation of the transbronchial biopsies. Her washings also demonstrated inflammatory changes. The patient did have evidence of bronchitis as well. Will go ahead and start her on a small dose of prednisone and antibiotics at this time. All her cultures are negative. The main culture will waiting for his the AFB cultures for mycobacterial disease which are still pending. 06/06/2022 the patient is here for a pulmonary follow-up visit. Overall she continues to be about the same. She complains about intermittent cough. Also dyspnea on exertion [id number] severity when going up an incline. She denies any rashes. Denies any visual changes. We did again look at the microbiology. Or AFB and fungal cultures are negative. Therefore ruling out an infectious process causing the granulomas. In view of the negative microbiology this is consistent with sarcoidosis. The patient has some symptoms in addition to that has interval worsening of the parenchymal lung disease. Therefore the patient agrees to go ahead and treat with prednisone for the next few months and then repeat the CT scan of the chest in 3 months to see if there is improvement. The patient was started 30 mg. If however this is difficult for her to tolerate she can always decrease it down to 20. I am hopeful that she can wean down to 10 mg and then continue on that smaller does until her CT scan. The patient understands that if the CAT scan does demonstrate any improvement at that point I will recommend she a follow-up visit with thoracic surgery. 10/10/2022 the patient is here for a pulmonary follow-up visit. She is down to 10 mg of prednisone. Overall her breathing is better. She also had a CT scan of the chest that we personally viewed together. Appears that the nodular density in the left upper lobe has completely subsided. 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 The patient also has a history of Sjogren's. While she was in the prednisone she did have a flare up with significant salivary gland inflammation. She was seen by her diversity intern. She was recommended to continue on the prednisone. Now that she is down to 10 mg will going to wean her off slowly. Hopefully within the next 6 weeks she will be off the prednisone altogether. Although, based on the degree of inflammation based on her Sjogren's she may need some steroid sparing agent to help her modulate her symptoms and the inflammatory process. Therefore we did talk about immunomodulator therapy such as with methotrexate or CellCept. Clinically the patient is doing better she still on 10 mg of prednisone. Therefore will going to continue to wean off slowly the prednisone and when she is off she is going to have an x-ray. Subsequently after that if the x-rays okay she will return sometime in the end of the year after a CT scan of the chest to see if there is any progression of disease. At any point that she has any worsening symptoms she is to call. She is in December she is going to have an appoint with diversity intern and they can discuss the need for any additional therapies when she is off prednisone. 02/22/2023 the patient is here for a pulmonary follow-up visit. The patient overall feeling well. Denies worsening cough shortness of breath. She has been off the prednisone altogether. She does continue the Symone quenil for the Sjogren's. Although her dry mouth got significantly better after changing her toothpaste. She did have a repeat CT scan of the chest which was personally by me. It appears that she has a new 8 mm nodular density the base. We did review her previous imaging studies symptoms was not present. Although the patient continues to be asymptomatic will hold off on any additional steroid therapy. Will plan to repeat the CT scan in 6 months, unless, the patient gets worsening symptoms she would call for an earlier assessment. 08/22/2023 the patient has a telehealth visit today. She had been doing well until the last several days when she started developing flu-like symptoms. Sinus headaches. She did test positive for COVID yesterday. She feels like she has been sick for more than several days so therefore unlikely that antiviral therapy is going to be effective. She also feels like her symptoms are pretty mild and does not feel like she really needs to take anything. She recently had a CT scan of the chest actually yesterday 08/21/2023 which I personally reviewed and compared to her previous CT scan from 6 months ago. However, has not been officially read yet. She did have a repeat CT scan because of a new 8 mm pulmonary nodule in the left lower lobe. I did compare it seems like it is unchanged when compared to the previous CT scan. Therefore will plan to repeat the CT scan again 6 months will re-evaluate then. However, the patient has any worsening symptoms specially productive cough with shortness of breath due to the COVID she has to call the office prior to this weekend so we can consider additional therapies. Otherwise will follow-up in [address] scan. Also to note further recommendation based on forthcoming did have from the official read of the CT scan. 02/15/2024 the patient is here for a pulmonary follow-up visit. Overall she is doing well. The last visit she had with me she did have COVID. Therefore, was a telehealth visit. Overall she is doing good. She still having issues with a dry of the eyes due to the Sjogren's and she is still taking the Plaquenil for that as well. Seems to be tolerating the medicine well without any visible changes at least from that standpoint. She does have some macular degeneration though that she is dealing with. In addition to that the patient did have a CT scan of the chest that we did to further follow-up the 8 mm pulmonary nodule that was new in the left lower lobe. To me it seems like the nodular densities a little smaller which is reassuring although she has other areas of streaky and inflammatory like changes. Could be related to her COVID infection in the past. The rest of the interstitial lung disease that she has this appears to be pretty stable. Therefore, based on the fact that the nodular densities better if not the same will go ahead and repeat a CT scan in a year's time. Patient develops any worsening symptoms prior to that she will call for an earlier assessment. Also to note I did personally review the images and the CAT scan of unfortunately has not been officially read as of yet so therefore if any other findings arise I will let her know make necessary changes to my plan. [facility] Medical History (Updated 02/15/24 @ 13:28 by Torrey Ortiz MD) KALPANA on CPAP Sarcoidosis Atrial fibrillation GERD (gastroesophageal reflux disease) History of breast cancer (~1997) Chronic rhinitis Sjogren's disease Asthma Pulmonary nodules Surgical History (Updated 03/16/22 @ 14:03 by Mercedes Mota RN) History of bronchoscopy History of lung surgery Social History Are you a primary healthcare manager to a significant other at home: No Patient Tobacco Use Status: Never used Tobacco Review of Systems Const Denies night sweats ENT Denies change in voice, Denies lip swelling, Denies mouth pain, Reports nasal congestion, Reports nasal discharge and Denies tongue swelling Card Denies chest pain, Denies palpitations and Reports dyspnea on exertion Resp Reports chest congestion, Reports cough and Reports dyspnea on exertion GI Denies abdominal pain Musc Denies no additional complaints Neuro Denies Neuro-related abnormal movements Psych Denies no additional complaints Endo Denies palpitations Ravinder/Lymph Denies easy bleeding and Denies lymphadenopathy Aller/Immun Denies lip swelling and Denies tongue swelling Physical Exam Vital Signs: Last Vital Signs Pulse 68 02/15/24 13:15 BP 130/68 02/15/24 13:15 Pulse Ox 99 02/15/24 13:15 Oxygen Delivery Method Room Air 02/15/24 13:15 BMI result Body Mass Index 31.6 Const General: alert HEENT Head: Yes atraumatic Eyes Pupils: Equal, round and reactive pupils present Neck Neck: Yes supple Chest Chest palpation & inspection: normal inspection of the chest Resp Auscultation: diminished lung sounds Cardio Rate: regular rate Rhythm: regular rhythm Heart sounds: S1 normal heart sound present and S2 normal heart sound present GI Palpation (GI): Soft to palpation and nontender Auscultation: normal bowel sounds Skin General skin exam: rashes and/or lesions noted Neuro Cranial nerves: Yes Equal, round and reactive pupils present Assessment & Plan Assessment & Plan (1) Pulmonary nodules: Code(s): R91.8 - Other nonspecific abnormal finding of lung field Category: Medical (2) Asthma: Code(s): J45.909 - Unspecified asthma, uncomplicated Category: Medical Qualifiers: Asthma complication type: uncomplicated Asthma persistence: persistent Asthma severity: moderate Qualified Code(s): J45.40 - Moderate persistent asthma, uncomplicated (3) Sjogren's disease: Code(s): M35.00 - Sjogren syndrome, unspecified Category: Medical Qualifiers: Sjogren's organ involvement: unspecified organ involvement Qualified Code(s): M35.00 - Sicca syndrome, unspecified (4) Chronic rhinitis: Code(s): J31.0 - Chronic rhinitis Category: Medical (5) Sarcoidosis: Code(s): D86.9 - Sarcoidosis, unspecified Category: Medical (6) KALPANA on CPAP: Code(s): G47.33 - Obstructive sleep apnea (adult) (pediatric) Category: Medical Plan continue plaquenil repeat CT chest in 12 month CPAP -supplies F/U 6-12 months or sooner if any worsenig respiratory symptoms Orders: Orders CT chest wo IV con 1 Year R91.8 - Other nonspecific abnormal finding of lung field Coding Level of Care Code Est Pt Level 4 (51940) Diagnoses Pulmonary nodules R91.8 Moderate persistent asthma without complication J45.40 Asthma complication type: uncomplicated Asthma persistence: persistent Asthma severity: moderate Sjogren's syndrome, with unspecified organ involvement M35.00 Sjogren's organ involvement: unspecified organ involvement Chronic rhinitis J31.0 Sarcoidosis D86.9 KALPANA on CPAP G47.33 Time Spent (min) 17
== END 2024-02-15 13:45 | disposition home or self-care (01) ==
PROVIDERS: PCP Internal Medicine; Visit Provider Hospitalist
DX: R91.8 Other nonspecific abnormal finding of lung field (principal); J45.40 Moderate persistent asthma, uncomplicated; M35.00 Sjogren syndrome, unspecified; J31.0 Chronic rhinitis; D86.9 Sarcoidosis, unspecified; G47.33 Obstructive sleep apnea (adult) (pediatric)
CPT/HCPCS: 99214

== ENCOUNTER → 2024-02-15 13:10 | Outpatient (BNVA) | payer MEDICARE, SELFPAY | PROVIDERS: PCP Internal Medicine; Visit Provider Hospitalist | DX: J45.40 Moderate persistent asthma, uncomplicated (principal); J31.0 Chronic rhinitis; R91.8 Other nonspecific abnormal finding of lung field; R91.1 Solitary pulmonary nodule; M35.00 Sjogren syndrome, unspecified; D86.9 Sarcoidosis, unspecified; G47.33 Obstructive sleep apnea (adult) (pediatric) | CPT/HCPCS: 99212 ==

== ENCOUNTER 2025-02-16 12:41 | Outpatient (REF) | payer MEDICARE, SELFPAY ==
--- NOTE | ~2025-02-16 | CT_ITS ---
EXAMINATION: CT CHEST WITHOUT CONTRAST CLINICAL INFORMATION: R91.8 - Other nonspecific abnormal finding of lung field COMPARISON: None available. TECHNIQUE: Multidetector volumetric CT imaging of the chest was done. Axial MIP volume rendering provided. Sagittal and coronal reformatted images were obtained. This CT examination was performed using dose optimization techniques as appropriate, variously including the following: *Automated exposure control *Adjustment of mA and/or kV according to patient size (this includes techniques or standardized protocols for targeted exams where dose is matched to indication/reason for exam; i.e. extremities or head) *Use of iterative reconstruction technique FINDINGS: LUNGS: Again seen are postsurgical changes related to wedge resection involving the left upper lobe. There is linear scarring and/or atelectasis in the remaining left upper lobe. Nodules measured on axial CT #5 Image 55: Lentiform shaped nodule along the left major fissure is consistent with an pulmonary none. Image 62:4 mm solid nodule in the left lower lobe near the hilum is new. Image 65: Right middle lobe nodule contacting minor fissure measures 4 x 6 mm, previously 5 x 7 mm. Image 73:a solid 3 x 5 mm right lower lobe nodule is unchanged. Image 87: Anterior right lower lobe solid nodule measuring 5 x 6 mm is new. Image 93: There is a new 4 x 5 mm solid nodule in the right middle lobe Image 94: On the prior there was a 4 mm solid nodule (image 37/Series 4) in the right lower lobe that is no longer present. Image 110: Pleural-based nodule in the lateral basal left lower lobe measures 4 x 10 mm, previously 5 x 9 mm, unchanged. Linear to nodular densities in the left apex are stable. There are a few other small nodules that were not measured. MEDIASTINUM: The mediastinum is normal. CORONARY ARTERY CALCIFICATION: Present PLEURA: There is no pleural effusion. AXILLA: No lymphadenopathy. There are clips in right axilla. Changes from right mastectomy are noted. UPPER ABDOMEN: There are calcified stones in the gallbladder. No change. OSSEOUS STRUCTURES: There is a spine is unchanged with evidence of degenerative disc disease CT/CT chest wo IV con IMPRESSION: Changes from left upper lobe wedge resection. There are multiple pulmonary nodules, some of which are new, and some of which are resolved, and several of which are stable. Recommend continued monitoring CT chest without contrast in 3-6 months. Cholelithiasis. Right mastectomy and lymph node resection. Fleischner guidelines do not apply in a patient with prior malignancy. Electronically signed by: Gautam Espinoza MD 02/16/2025 02:50 PM EST RP
--- OUTSIDE RECORDS SUMMARY | 2025-02-16 15:48 | XMS_ITS | Encounter Summary ---
Author Organization [facility] Address [address] [facility] [address] [place] [phone] Phone Care Team Providers Care Special Education Teacher Name Role Phone Nubia De Anda MD Primary Care Provide r Encounter Details Date Type Department Care Team (Late st Contact Info) Description 10/22/2019 Ancillary Orders [facility] [address] [place] [phone] Bishop Faith PA-C [address] [place] [address] Orthopedics & Sports Medicine, [place], [place] [id number] [email or web address] Social History Tobacco Use Types Packs/Day Years Used Date Smoking Tobacco: Never Smokeless Tobacco: Never Alcohol Use Standard Drinks/Week Comments Not Currently 0 (1 standard drink = 0.6 oz pur e alcohol) Comments Unknown Sex and Gender Information Value Date Recorded Sex Assigned at Female 11/24/2019 1:36 PM EDT Legal Sex Female 3:45 PM EST Gender Identity Female 11/24/2019 1:36 PM EDT Sexual Orientation Straight 11/24/2019 1: 36 PM EDT documented as of this encounter Plan of Treatment Not on file documented as of this encounter Visit Diagnoses Not on filedocumented in this encounter Care Teams Special Education Teacher Relationship Specialty Start Date End Date Nubia De Anda MD [address] [place] [address] [id number] PCP - General Internal Medicine 10/22/19 documented as of this encounter Additional Source Comments The information contained in this document represents components of the legal health record. It is not the complete legal health record.[facility]
--- OUTSIDE RECORDS SUMMARY | 2025-02-16 15:48 | XMS_ITS | Encounter Summary ---
Author Organization [facility] Address [address] [facility] [place] [address] [place] [phone] Phone Care Team Providers Care Guide Travel Name Role Phone Nubia De Anda MD Primary Care Provide r Encounter Details Date Type Department Care Team (Late st Contact Info) Description 10/22/2019 Ancillary Orders [address] [id number] Bishop Faith PA-C [address] [place] [address] Orthopedics & Sports Medicine, [place] [address] [email or web address] Wrist pain, acute, left Social History Tobacco Use Types Packs/Day Years [...] on file documented as of this encounter Results * XR WRIST 2 VIEWS (LEFT) (10/22/2019 1:38 PM EDT) Narrative SYSTEMGENERATED, DOCUMENTATION - 10/22/2019 1:38 PM EDT This image report has been auto-finalized and has not been read by a Radiologist. Interpretation has been included in the provider encounter note for this date of service. us Bishop Faith PA-C IMG XR UPPER EXTREMITY Final Result documented in this encounter Visit Diagnoses Diagnosis Wrist pain, acute, left Wrist pain, acute, left documented in this encounter Care Teams Guide Travel Relationship Specialty Start Date End Date Nubia De Anda MD [address] [place] [id number] PCP - General Internal Medicine 10/22/19 documented as of this encounter Additional Source Comments The information contained in this document represents components of the legal health record. It is not the complete legal health record.[facility]
--- OUTSIDE RECORDS SUMMARY | 2025-02-16 15:48 | XMS_ITS | Clinical Summary ---
Author Organization [facility] Address [address] [place] [id number] Phone Care Team Providers Care Motor Route Carrier Name Role Phone Nubia De Anda MD Primary Care Provide r Allergies Active Allergy Reactions Criticality Noted Date Comments Lisinopril Other (See Comments) Low 10/05/2017 cough Medications DULoxetine (CYMBALTA) 60 MG capsule Take 60 mg by mouth daily. Active hydroCHLOROthiazi de (MICROZIDE) 12.5 mg capsule Take 25 mg by mouth daily. Active hydroxychloroquin e (PLAQUENIL) 200 mg tablet Take 200 mg by mouth 2 (two) times a day. Active magnesium oxide (MAG-OX) 400 mg (240 mg elemental) tablet Take 400 mg by mouth daily. Active cyanocobalamin, vitamin B-12, 100 MCG tablet Take 1,000 mcg by mouth daily. Active calcium citrate-vitamin D3 (CITRACAL+D) 315-200 mg-unit per tablet Take 1 tablet by mouth daily. Active therapeutic multivitamin tablet Take 1 tablet by mouth daily. Active omeprazole (PRILOSEC) 20 MG capsule Take 20 mg by mouth daily. Active Active Problems No known active problems Social History Tobacco Use Types Packs/Day Years Used Date Smoking Tobacco: Never Smokeless Tobacco: Never Alcohol Use Standard Drinks/Week Comments Not Currently 0 (1 standard drink = 0.6 oz pur e alcohol) Education Answer Date Recorded Are you interested in more education? Not on baldemar e 06/23/2022 Are you concerned about learning? Not on file 06/23/2022 No 06/23/2022 No 06/23/2022 Digital Access Answer Date Recorded No 07/22/2022 No 07/22/2022 No 07/22/2022 Reliable internet access at home? Not on file 07/22/2022 Device with a working camera? Not on file Comments Unknown Sex and Gender Information Value Date Recorded Sex Assigned at Female 11/24/2019 1:36 PM EDT Legal Sex Female 3:45 PM EST Gender Identity Female 11/24/2019 1:36 PM EDT Sexual Orientation Straight 11/24/2019 1: 36 PM EDT Last Filed Vital Signs Vital Sign Reading Time Taken Comments Blood Pressure 144/70 04/16/2018 10:27 AM EST Pulse 78 04/16/2018 10:27 AM EST Temperature 36.6 C (97.9 F) 04/16/2018 10:27 AM EST Respiratory Rate - - Oxygen Saturation 96% 04/16/2018 10:27 AM EST Inhaled Oxygen Concentration - - Weight 83 kg (183 lb) 01/02/2020 11:15 AM EST Height 162.6 cm (5' 4 ) 01/02/2020 11:15 AM EST Body Mass Index 31.41 01/02/2020 11:15 AM EST Plan of Treatment Health Maintenance Due Date Last Done Comments Adult Td,Tdap Booster 1945 LIPID PANEL 1945 POTASSIUM LEVEL 1946 DEPRESSION SCREENING 1958 HEPATITIS C SCREENING 1964 ZOSTER VACCINES (1 of 2) 1996 OSTEOPOROSIS SCREENING INITI AL (ONE-TIME) 2011 RSV VACCINE (1 - 1-dose 75+ series) 2021 INFLUENZA VACCINE (#1) 2024 , 01/19/2018 COVID-19 VACCINE (2 - 2024-2 6 season) 2024 04/22/2020 PNEUMOCOCCAL VACCINES (50+ years) Completed 10/02/2014, 01/05/2012 SMOKING STATUS SCREENING (On ce After 26 Yrs) Completed 01/02/2020 HEPATITIS A VACCINES Aged Out No long er eligible based on patient's age to complete this topic HIB VACCINES Aged Out No longer eligi ble based on patient's age to complete this topic MENINGOCOCCAL VACCINES (ACWY) Aged Out No longer eligible based on patient's age to complete this topic MENINGOCOCCAL VACCINES (B) Aged Out N o longer eligible based on patient's age to complete this topic Medical Devices Not on file Insurance [employer] RE[employer] RE[employer] Care Teams Motor Route Carrier Relationship Specialty Start Date End Date GirNubia hoskins MD [address] [place] [address] PCP - General Internal Medicine 10/22/19 Additional Source Comments The information contained in this document represents components of the legal health record. It is not the complete legal health record.[facility]
--- OUTSIDE RECORDS SUMMARY | 2025-02-16 15:48 | XMS_ITS | Clinical Summary ---
Author Organization [facility] Prior to 07/26/[address] [place] [address] Care Team Providers Care Drying Unit Felting Machine Operator Name Role Phone Nubia De Anda MD Primary Care Provide r Allergies Active Allergy Reactions Criticality Noted Date Comments Lisinopril Other (See Comments) Low 10/05/2017 cough Medications Medication Sig Dispensed Refills Start Date End Date Status duloxetine (CYMBALTA) DR capsule 60 mg Take 60 mg by mouth daily. 0 Active hydroCHLOROthiazide (MICROZIDE) 12.5 MG capsule Take 12.5 mg by mouth daily. 0 Active hydroxychloroquine (PLAQUENIL) 200 MG tablet Take by mouth 2 (two) times a day. 0 Active aspirin EC 81 MG tablet Take 81 mg by mouth daily. 0 Active B Bpqyjmd-Vnrwzr-KN (MULTI-B COMPLEX PO) Take by mouth. 0 Active Magnesium Oxide 400 (241.3 Mg) MG TABS tablet Take 400 mg by mouth 2 (two) times a day. 0 Active calcium citrate-vitamin D (CITRACAL+D) 315-200 MG-UNIT per tablet Take 1 tablet by mouth 2 (two) times a day. 0 Active vitamin B-12 (CYANOCOBALAMIN) 100 MCG tablet Take 50 mcg by mouth daily. 0 Active omeprazole (PriLOSEC) 20 MG capsule Take 20 mg by mouth daily. 0 Active Active Problems Problem Noted Date Diagnosed Date Pulmonary nodules/lesions, multiple 10/07/2017 Family History Medical History Relation Name Comments Cancer Father lung Hypertension Mother Heart attack Sister Relation Name Status Comments Brother Father lung Mother Sister Social History Tobacco Use Types Packs/Day Years Used Date Smoking Tobacco: Never Smokeless Tobacco: Never Alcohol Use Standard Drinks/Week Comments Yes 1 (1 standard drink = 0.6 oz pur e alcohol) social Sex and Gender Information Value Date Recorded Sex Assigned at Not on file Gender Identity Not on file Sexual Orientation Not on file Job Start Date Occupation Industry Not on file Not on file Not on file Last Filed Vital Signs Vital Sign Reading Time Taken Comments Blood Pressure 159/74 01/17/2019 3:32 PM EST Pulse 63 01/17/2019 3:32 PM EST Temperature 36.9 C (98.4 F) 10/11/2018 9:02 AM EDT Respiratory Rate - - Oxygen Saturation - - Inhaled Oxygen Concentration - - Weight 88.9 kg (196 lb) 01/17/2019 3:32 PM EST Height 162.6 cm (5' 4 ) 10/11/2018 9:02 AM EDT Body Mass Index 33.64 10/11/2018 9:02 AM EDT Plan of Treatment Health Maintenance Due Date Last Done Comments Hepatitis C Screening 1945 COVID-19 Vaccine (#1) 1946 Pneumococcal Vaccine (1 of 2 - PCV) 1952 Depression Screening 1958 Preventative Health Evaluation 1964 DTap / Tdap / Td (1 - Tdap) 1965 Shingrix-Zoster Vaccine (1 of 2) 1996 Fall Risk Assessment 2011 Osteoporosis Screening (DEXA Scan) 2011 RSV Adult > 60+ Yrs or Pregn ant (1 - 1-dose 75+ series) 2021 Influenza Vaccine (#1) 2024 Hepatitis B Vaccines Aged Out No long er eligible based on patient's age to complete this topic RSV Ped < 20 months Aged Out No longe r eligible based on patient's age to complete this topic Care Teams Drying Unit Felting Machine Operator Relationship Specialty Start Date End Date Nubia De Anda MD PCP - General Internal Medicine 06/04/18
--- OUTSIDE RECORDS SUMMARY | 2025-02-16 15:48 | XMS_ITS | Clinical Summary ---
Author Organization [facility] Address [address] [place] [address] Phone Care Team Providers Care Soda Room Operator Name Role Phone Nubia De Anda MD Primary Care Provider [phone] Encounters Date Type Department Care Team Description 02/04/2025 1:18 PM EST - 02/04/2025 11:59 PM EST Hospital [facility]counter [facility] [address] [phone] Breast calcifications Discharge Disposition: Home or Self Care 01/07/2025 10:30 AM EST - 01/07/2025 11:59 PM EST Hospital Encounter [facility] [address] [phone] Encounter for screening mammogram for breast cancer Discharge Disposition: Home or Self Care from Last 3 Months Surgical History Surgery Date Site/Laterality Comments COLONOSCOPY 01/03/2017 PROCEDURE: HISTORICAL COLONOSCOPY; COMMENT: polyps - 5 UPPER GASTROINTESTINAL ENDOSCOPY 01/03/2017 PROCEDURE: HI UPPER GI ENDOSCOPY PERFORMED; COMMENT: GERD BREAST LUMPECTOMY Right PROCEDURE: HISTORICAL BREAST LUMPECTOMY CATARACT EXTRACTION PROCEDURE: HISTORICAL CATARACT REMOVAL HYSTERECTOMY PROCEDURE: HISTORICAL HYSTERECTOMY HERNIA REPAIR PROCEDURE: HISTORICAL HERNIA REPAIR/UMB VENTRAL HERNIA REPAIR 07/18/2017 PROCEDURE: HISTORICAL VTRL WALL HERNIA RE; COMMENT: lap repair incisional hernia includes mesh insertion COLONOSCOPY 07/13/2020 PROCEDURE: HISTORICAL COLONOSCOPY; COMMENT: 5 polyps Medical History Medical History Date Comments History of colon polyps DX:Histo ry of colon polyps; COMMENT: adenomas - 12/2016 GERD with esophagitis DX:GERD wi th esophagitis Hypertension DX:Hypertension History of breast cancer 1997 DX:Hist ory of breast cancer CKD (chronic kidney disease) stage 2, GFR 60-89 ml/min DX:CKD (chronic kidney disea se) stage 2, GFR 60-89 ml/min Sjogren's disease ([facility] V24) DX:Sjogren's disease (HCC) Fibromyalgia DX:Fibromyalgia Osteoarthritis DX:Osteoarthriti s; COMMENT: Left knee Gout DX:Gout TMJ (dislocation of temporom andibular joint) DX:TMJ (dislocation of temporomandibular joint) Tinnitus DX:Tinnitus Lymphoma ([facility] V24, [facility] V28) 02/03/2019 DX:Lymphoma (HCC) Peripheral neuropathy due to chemotherapy ([facility] V24) 02/03/2019 DX:Peripheral neuropathy du e to chemotherapy (HCC) Vitamin B12 deficiency 02/03/2019 DX:Vitami n B12 deficiency 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 Pulmonary nodules 02/03/2019 DX:Pulmonary n odules Depression 02/03/2019 DX:Depression Social History Tobacco Use Types Packs/Day Years Used Date Smoking Tobacco: Never Smokeless Tobacco: Never Alcohol Use Standard Drinks/Week Comments Yes 0 (1 standard drink = 0.6 oz pur e alcohol) Comments Unknown Sex and Gender Information Value Date Recorded Sex Assigned at Not on file Legal Sex Female 1:14 PM EST Gender Identity Not on file Sexual Orientation Not on file Plan of Treatment Upcoming Encounters Date Type Department Care Team (Late st Contact Info) Description 03/05/2025 7:30 AM EST [facility]ointment [facility] at [address] [phone] 03/05/2025 8:45 AM EST Appointment [facility] at [address] [phone] Health Maintenance Due Date Last Done Comments Zoster Vaccines (1 of 2) 1965 Cholesterol Screening (Lipid Panel) 02/04/2022 Falls Risk Assessment 02/04/2022 Hepatitis C Screening 02/04/2022 Medicare Annual Wellness Visit 02/04/2022 Osteoporosis Screening (Bone Density Screening) 02/04/2022 Social Influencers of Health Screening 02/04/2022 Hypertension/CHF/CAD Annual BMP Blood Test 02/08/2022 Depression Screening 02/27/2024 COVID-19 Vaccine (6 - 2025-26 season) 2024 03/11/2024, 06/16/2021, 01/12/2021, Additional history exists Influenza Vaccine (#1) 2024 , 12/23/2022, 12/15/2021, Additional history exists DTaP,Tdap,and Td Vaccines (3 - Td or Tdap) 05/04/2029 05/05/2019, 09/29/2008 Pneumococcal Vaccine: 50+ Years Completed 10/02/2014, 01/05/2012 RSV Immunization Adult Patients Completed 02/24/2023 HIB Vaccines Aged Out No longer eligi ble based on patient's age to complete this topic HPV Vaccines Aged Out No longer eligi ble based on patient's age to complete this topic Hepatitis A Vaccines Aged Out No long er eligible based on patient's age to complete this topic Hepatitis B Vaccines Aged Out No long er eligible based on patient's age to complete this topic IPV Vaccines Aged Out No longer eligi ble based on patient's age to complete this topic MMR Vaccines Aged Out No longer eligi ble based on patient's age to complete this topic Meningococcal ACWY Vaccine Aged Out N o longer eligible based on patient's age to complete this topic Meningococcal B Vaccine Aged Out No l onger eligible based on patient's age to complete this topic RSV Immunization Patients Under 20 months Aged Out No longer eligible based on patient's age to complete this topic Varicella Vaccines Aged Out No longer eligible based on patient's age to complete this topic Procedures Procedure Name Priority Date/Time Associated Diagnosis Comments MG MAMMO DIAGNOSTIC ADDL VIEWS RIGHT Routine 02/04/2025 2:41 PM EST Breast calcifications MG MAMMO DIGITAL SCREENING W MATT BILAT Routine 01/07/2025 11:09 AM EST Encounter for screening mammogram for breast cancer from Last 3 Months Results * (ABNORMAL) MG Mammo Diagnostic Addl Views Right (02/04/2025 2:41 PM EST) Anatomical Region Laterality Modality Breast Right Mammography 02/04/2025 2:20 PM EST Impressions 02/04/2025 3:40 PM EST Calcifications in the right breast. Stereotactic biopsy is recommended. Results and recommended follow-up were discussed with patient at time of the exam. BI-RADS CATEGORY: 4 - SUSPICIOUS RECOMMENDATION: Core biopsy of right breast recommended. Mammo Location: [facility], [address] [place] [address], [phone], . -------- FINAL REPORT -------- Dictated By: Elsy Ray Dictated Date: 02/04/2025 14:20 ET Assigned Physician: Elsy Ray Reviewed and Electronically Signed By: Elsy aRy Signed Date: 02/04/2025 15:40 ET Workstation ID: [id number] Transcribed By: Self Edit Transcribed Date: 02/04/2025 14:23 ET Narrative 02/04/2025 3:40 PM EST CLINICAL: 79 years old, Female, call back from screening for calcifications in the right breast. History of right breast cancer 1997. COMPARISON: Multiple prior studies dating back to 2019 FINDINGS: MAMMOGRAPHY TECHNIQUE: Right CC and ML magnification views were obtained digitally with 2-D mammogram. There is a 7 mm group of calcifications in the right breast at 6 o'clock middle depth. BREAST DENSITY: B - There are scattered areas of fibroglandular density. us Nubia De Anda MD IMG BI PROCEDURES Final Resu lt * (ABNORMAL) MG Mammo Digital Screening w Matt bilat (01/07/2025 11:09 AM EST) Anatomical Region Laterality Modality Breast Bilateral Mammography 01/07/2025 10:5 5 AM EST Impressions 01/07/2025 11:07 AM EST Incompletely characterized grouped coarse heterogeneous calcifications in the 6 o'clock position 3.5 cm from the right nipple. Recommend diagnostic right mammography including spot magnified views in craniocaudal and mediolateral projections. A negative mammogram in the presence of a clinically suspicious palpable abnormality does not preclude the possibility of malignancy or alter the indications for biopsy. ASSESSMENT: BI-RADS 0: INCOMPLETE - need additional imaging evaluation and/or prior mammograms for comparison RECOMMENDATION(S): 1: Special mammographic view(s) needed RIGHT [facility] location[facility] [address], [phone] -------- FINAL REPORT -------- Dictated By: Aravind Singh Dictated Date: 01/07/2025 10:55 ET Assigned Physician: Aravind Singh Reviewed and Electronically Signed By: Aravind Singh Signed Date: 01/07/2025 11:07 ET Workstation ID: [id number] Transcribed By: Self Edit Transcribed Date: 01/07/2025 10:55 ET Narrative 01/07/2025 11:07 AM EST EXAM: SCREENING MAMMOGRAPHY, BILATERAL HISTORY: SCREENING. Personal history of right breast cancer. Right lumpectomy 1997. COMPARISON: 07/13/23, 07/10/22, 06/29/21, 06/18/20 TECHNIQUE: Synthesized CC and MLO projections of each breast. Tomosynthesis of each breast in the CC and MLO projections. ADDITIONAL IMAGING: None Computer-aided detection was employed with the iCAD ProFound AI 3-D. TISSUE DENSITY: There are scattered areas of fibroglandular density. (BI-RADS category B) FINDINGS: There is global asymmetry. The right breast is smaller than the left. This is unchanged. RIGHT BREAST: There is trabecular thickening. There is skin thickening. There is some skin retraction. There are surgical clips present. There are grouped coarse heterogeneous calcifications in the 6 o'clock position 3.5 cm from the nipple. I cannot confirm stability. LEFT BREAST: No suspicious mass. No suspicious calcification. No distortion. No additional suspicious left breast findings us Self Referral [facility] IMG BI PROCEDURES Final Resul t from Last 3 Months Insurance [facility] [employer] Care Teams Soda Room Operator Relationship Specialty Start Date End Date Nubia De Anda MD [address] [place] [address] PCP - General Internal Medicine 10/14/18
== END 2025-02-16 12:42 | disposition home or self-care (01) ==
LOC: HO.CT 12:41
PROVIDERS: PCP Internal Medicine; Visit Provider Hospitalist
DX: R91.8 Other nonspecific abnormal finding of lung field (principal)
CPT/HCPCS: 71250

== ENCOUNTER → 2025-02-16 12:42 | Outpatient (BNV) | payer MEDICARE, SELFPAY | PROVIDERS: PCP Internal Medicine; Visit Provider Radiology Diagnostic Radiology | DX: R91.8 Other nonspecific abnormal finding of lung field (principal); K80.20 Calculus of gallbladder without cholecystitis without obstruction; Z90.11 Acquired absence of right breast and nipple | CPT/HCPCS: 71250 ==